=== PATIENT | male | born 1960 | race Caucasian/White ===

== ENCOUNTER → 2020-07-24 | Outpatient (CLI) | payer OTHER ==
--- NOTE | 2020-07-24 10:15 | US ---
EXAMINATION TYPE: US abdomen limited DATE OF EXAM: 07/24/2020 COMPARISON: NONE CLINICAL HISTORY: R10.9 abdominal pain. RUQ pain EXAM MEASUREMENTS: Liver Length: 8.7 cm Gallbladder Wall: 0.3 cm CBD: 0.6 cm Right Kidney: 11.7 x 5.2 x 5.7 cm Pancreas: prominent duct at 0.3 cm Liver: wnl Gallbladder: No stones seen Evidence for sonographic Perez's sign: No CBD: measures 0.6 cm Right Kidney: No hydronephrosis or masses seen IMPRESSION: Borderline prominence of the pancreatic duct. Otherwise unremarkable study.
== END | disposition home or self-care (01) ==
LOC: RADUSWWP 09:21
DX: R10.9 Unspecified abdominal pain (principal)
CPT/HCPCS: 76705

== ENCOUNTER 2020-09-16 13:56 | Inpatient (IN) | payer OTHER ==
[2020-09-16] MEDS ORDERED: ONDANSETRON 4 MG/2 ML VIAL IVP STA (14:33)
[2020-09-16] MEDS ORDERED: SODIUM CHLORIDE 0.9% 1,000 ML IV STA (14:33)
--- NOTE | 2020-09-16 14:51 | ED ---
General Adult HPI - General Source: patient Mode of arrival: wheelchair Limitations: no limitations <Adilene Yin - Last Filed: 09/16/20 19:09> <[place] Gautamah Nara - Last Filed: 09/18/20 12:08> - General Chief complaint: Chest Pain Stated complaint: Chest Pain,Dizziness,vomitng, sent from doctor Time Seen by Provider: 09/16/20 14:18 - History of Present Illness Initial comments: Patient is a 59-year-old male with history of hypertension, presenting to the emergency Department with complaints of acute onset of dizziness, nausea and diaphoresis. Patient is also complaining of his heart racing. Patient is ac tively vomiting in the ER. He is also complaining of a mild headache. He denies any chest pains, or shortness of breath. He denies any recent fevers or chills. She is currently being treated for a staph infection/skin cancer with antibiotics, he is unsure the name of the antibiotic. He denies any abdominal pain, no diarrhea. Patient states when he woke up this morning he felt his normal self, ate lunch and that's when his symptoms started. He has no further complaints at this time. Upon arrival to the ER, patient's blood pressure is elevated at 173/103 heart patient is actively vomiting. (Adilene Yin) - Related Data Home Medications Medication Instructions Recorded Confirmed Albuterol Inhaler [Ventolin Hfa 1 puff INHALATION RT-Q6H PRN 09/16/20 09/16/20 Inhaler] Doxycycline Hyclate [Vibramycin] 100 mg PO BID 09/16/20 09/16/20 amLODIPine [Norvasc] 5 mg PO DAILY 09/16/20 09/16/20 Previous Rx's Medication Instructions Recorded Amoxic-Pot Clav 875-125Mg 1 tab PO Q12HR 7 Days #14 tab 09/18/20 [Augmentin 875-125] Famotidine [Pepcid] 20 mg PO BID 7 Days #14 tablet 09/18/20 Allergies Allergy/AdvReac Type Severity Reaction Status Date / Time EVIN Inhibitors Allergy Anaphylaxis Verified 09/16/20 14:05 Review of Systems ROS Other: All systems not noted in ROS Statement are negative. <Adilene Yin - Last Filed: 09/16/20 19:09> ROS Other: All systems not noted in ROS Statement are negative. <Smitha Gautam - Last Filed: 09/18/20 12:08> ROS Statement: Those systems with pertinent positive or pertinent negative responses have been documented in the HPI. Past Medical History Past Medical History: Hypertension Additional Past Medical History / Comment(s): staph infection, skin CA. History of Any Multi-Drug Resistant Organisms: None Reported Past Surgical History: No Surgical Hx Reported Past Psychological History: No Psychological Hx Reported Smoking Status: Current every day smoker Past Alcohol Use History: None Reported Past Drug Use History: None Reported <Adilene Yin - Last Filed: 09/16/20 19:09> General Exam Limitations: no limitations <Adilene Yin - Last Filed: 09/16/20 19:09> - General Exam Comments Initial Comments: GENERAL: Patient is well-developed and well-nourished. Patient is nontoxic and in mild distress, actively vomiting. HEAD: Atraumatic, normocephalic. EYES: Pupils equal round and reactive to light, extraocular movements intact, sclera anicteric, conjunctiva are normal. Eyelids were unremarkable. ENT: TMs normal, nares patent, oropharynx clear without exudates. Moist mucous membranes. NECK: Normal range of motion, supple without lymphadenopathy or JVD. LUNGS: Unlabored respirations. Breath sounds clear to auscultation bilaterally and equal. No wheezes rales or rhonchi. HEART: Regular rate and rhythm without murmurs, rubs or gallops. ABDOMEN: Soft, nontender, normoactive bowel sounds. No guarding, no rebound. No masses appreciated. : Deferred MUSCULOSKELETAL: Normal extremities with adequate strength and normal range of motion, no pitting or edema. No clubbing or cyanosis. NEUROLOGICAL: Patient is alert and oriented x 3. Motor and sensory are also intact. Cranial nerves II through XII grossly intact. Symmetrical smile. Normal speech, normal gait. PSYCH: Normal mood, normal affect. SKIN: Warm, Dry, normal turgor, no rashes or lesions noted. (Adilene Yin) Course Vital Signs 09/16/20 09/16/20 09/16/20 14:00 15:16 18:33 Temperature Pulse Rate 76 68 68 Respiratory 18 18 18 Rate Blood Pressure 173/103 145/89 O2 Sat by Pulse 98 96 98 Oximetry 09/16/20 09/16/20 09/16/20 19:06 21:35 23:45 Temperature Pulse Rate 67 78 71 Respiratory 18 18 18 Rate Blood Pressure 149/75 144/82 167/90 O2 Sat by Pulse 94 L 94 L 94 L Oximetry 09/17/20 09/17/20 01:30 06:10 Temperature 97.6 F 98.3 F Pulse Rate 64 74 Respiratory 18 18 Rate Blood Pressure 134/76 130/83 O2 Sat by Pulse 95 94 L Oximetry EKG Findings - EKG Comments: EKG Findings:: Normal sinus rhythm, normal ECG, no signs of acute ischemia. Reviewed with Dr. Gautam. Ventricular rate 62, PA interval 144, QT of 404. <Adilene Yin - Last Filed: 09/16/20 19:09> Medical Decision Making - Lab Data Result diagrams: 09/16/20 15:14 09/16/20 15:14 <Adielne Yin - Last Filed: 09/16/20 19:09> - Lab Data Result diagrams: 09/16/20 15:14 09/16/20 15:14 <Smitha Gautam - Last Filed: 09/18/20 12:08> - Medical Decision Making Patient is a 59-year-old male here with an acute onset of nausea vomiting, heart palpitations, headache over the past 2 hours. EKG shows no signs of acute ischemia. Vitals are stable, troponin is negative, rapid Covid is not detected. Chest x-ray is revealing a left upper lobe mass, additional workup with a contrast CT is recommended. A CT shows an irregular mass within the left upper back, soft tissue. Small right lower lobe opacity, indeterminate 4 mm right upper lobe nodule. Upon speaking with the patient, patient does have history of recent skin cancer diagnosis with small mass on the left upper back. Patient continues to have intermittent palpitations/dyspnea, nauseous. Given his symptoms today, patient will be admitted for cardiac rule out. I will get franki pearson troponins, cardiac consult. Patient accepted by Dr. Khan. Case discussed with Dr. Gautam. (Adilene Yin) I was available for consultation in the emergency department. The history and physical exam were done by the midlevel provider. I was consulted for this patients care. I reviewed the case with the midlevel provider and based on their presentation of the patient, I agree with the assessment, medical decision making and plan of care as documented. Chart was dictated using [employer] dictation software. Attempts were made to correct any dictation errors however some typographical errors may persist. Patient was seen during a national state of emergency due to the Covid-19 pandemic. (Smitha Gautam) - Lab Data Lab Results 09/16/20 09/16/20 09/16/20 Range/Units 15:14 15:14 15:14 WBC 11.9 H (3.8-10.6) k/uL RBC 5.11 (4.30-5.90) m/uL Hgb 14.0 (13.0-17.5) gm/dL Hct 41.4 (39.0-53.0) % MCV 81.1 (80.0-100.0) fL MCH 27.5 (25.0-35.0) pg MCHC 33.9 (31.0-37.0) g/dL RDW 13.8 (11.5-15.5) % Plt Count 447 (150-450) k/uL MPV 8.1 Neutrophils % 63 % Lymphocytes % 26 % Monocytes % 6 % Eosinophils % 3 % Basophils % 1 % Neutrophils # 7.5 (1.3-7.7) k/uL Lymphocytes # 3.1 (1.0-4.8) k/uL Monocytes # 0.7 (0-1.0) k/uL Eosinophils # 0.4 (0-0.7) k/uL Basophils # 0.1 (0-0.2) k/uL PT 9.9 (9.0-12.0) sec INR 0.9 (<1.2) APTT 22.9 (22.0-30.0) sec Sodium 135 L (137-145) mmol/L Potassium 4.8 (3.5-5.1) mmol/L Chloride 102 (98-107) mmol/L Carbon Dioxide 24 (22-30) mmol/L Anion Gap 9 mmol/L BUN 17 (9-20) mg/dL Creatinine 0.76 (0.66-1.25) mg/dL Est GFR (CKD-EPI)AfAm >90 (>60 ml/min/1.73 sqM) Est GFR (CKD-EPI)NonAf >90 (>60 ml/min/1.73 sqM) Glucose 108 H (74-99) mg/dL Plasma Lactic Acid Chago (0.7-2.0) mmol/L Calcium 9.7 (8.4-10.2) mg/dL Magnesium 1.9 (1.6-2.3) mg/dL Total Bilirubin 0.4 (0.2-1.3) mg/dL AST 25 (17-59) U/L ALT 11 (4-49) U/L Alkaline Phosphatase 97 (38-126) U/L Troponin I (0.000-0.034) ng/mL Total Protein 7.1 (6.3-8.2) g/dL Albumin 4.1 (3.5-5.0) g/dL Triglycerides (0.0-149.0) mg/dL Cholesterol (0-200) mg/dL LDL Cholesterol, Calc (0.0-131.0) mg/dL VLDL Cholesterol, Calc (5.00-40.00) mg/dL HDL Cholesterol (40.0-60.0) mg/dL Cholesterol/HDL Ratio Amylase (30-110) U/L Lipase (23-300) U/L Urine Color Urine Appearance (Clear) Urine pH (5.0-8.0) Ur Specific [place] (1.001-1.035) Urine Protein (Negative) Urine Glucose (UA) (Negative) Urine Ketones (Negative) Urine Blood (Negative) Urine Nitrite (Negative) Urine Bilirubin (Negative) Urine Urobilinogen (<2.0) mg/dL Ur Leukocyte Esterase (Negative) Coronavirus (PCR) (Not Detectd) 09/16/20 09/16/20 09/16/20 Range/Units 15:14 15:14 15:14 WBC (3.8-10.6) k/uL RBC (4.30-5.90) m/uL Hgb (13.0-17.5) gm/dL Hct (39.0-53.0) % MCV (80.0-100.0) fL MCH (25.0-35.0) pg MCHC (31.0-37.0) g/dL RDW (11.5-15.5) % Plt Count (150-450) k/uL MPV Neutrophils % % Lymphocytes % % Monocytes % % Eosinophils % % Basophils % % Neutrophils # (1.3-7.7) k/uL Lymphocytes # (1.0-4.8) k/uL Monocytes # (0-1.0) k/uL Eosinophils # (0-0.7) k/uL Basophils # (0-0.2) k/uL PT (9.0-12.0) sec INR (<1.2) APTT (22.0-30.0) sec Sodium (137-145) mmol/L Potassium (3.5-5.1) mmol/L Chloride (98-107) mmol/L Carbon Dioxide (22-30) mmol/L Anion Gap mmol/L BUN (9-20) mg/dL Creatinine (0.66-1.25) mg/dL Est GFR (CKD-EPI)AfAm (>60 ml/min/1.73 sqM) Est GFR (CKD-EPI)NonAf (>60 ml/min/1.73 sqM) Glucose (74-99) mg/dL Plasma Lactic Acid Chago 1.8 (0.7-2.0) mmol/L Calcium (8.4-10.2) mg/dL Magnesium (1.6-2.3) mg/dL Total Bilirubin (0.2-1.3) mg/dL AST (17-59) U/L ALT (4-49) U/L Alkaline Phosphatase (38-126) U/L Troponin I <0.012 (0.000-0.034) ng/mL Total Protein (6.3-8.2) g/dL Albumin (3.5-5.0) g/dL Triglycerides 370.0 H (0.0-149.0) mg/dL Cholesterol 212 H (0-200) mg/dL LDL Cholesterol, Calc 106.0 (0.0-131.0) mg/dL VLDL Cholesterol, Calc 74.00 H (5.00-40.00) mg/dL HDL Cholesterol 32.0 L (40.0-60.0) mg/dL Cholesterol/HDL Ratio 6.63 Amylase (30-110) U/L Lipase (23-300) U/L Urine Color Urine Appearance (Clear) Urine pH (5.0-8.0) Ur Specific [place] (1.001-1.035) Urine Protein (Negative) Urine Glucose (UA) (Negative) Urine Ketones (Negative) Urine Blood (Negative) Urine Nitrite (Negative) Urine Bilirubin (Negative) Urine Urobilinogen (<2.0) mg/dL Ur Leukocyte Esterase (Negative) Coronavirus (PCR) (Not Detectd) 09/16/20 09/16/20 09/16/20 Range/Units 15:16 18:33 19:10 WBC (3.8-10.6) k/uL RBC (4.30-5.90) m/uL Hgb (13.0-17.5) gm/dL Hct (39.0-53.0) % MCV (80.0-100.0) fL MCH (25.0-35.0) pg MCHC (31.0-37.0) g/dL RDW (11.5-15.5) % Plt Count (150-450) k/uL MPV Neutrophils % % Lymphocytes % % Monocytes % % Eosinophils % % Basophils % % Neutrophils # (1.3-7.7) k/uL Lymphocytes # (1.0-4.8) k/uL Monocytes # (0-1.0) k/uL Eosinophils # (0-0.7) k/uL Basophils # (0-0.2) k/uL PT (9.0-12.0) sec INR (<1.2) APTT (22.0-30.0) sec Sodium (137-145) mmol/L Potassium (3.5-5.1) mmol/L Chloride (98-107) mmol/L Carbon Dioxide (22-30) mmol/L Anion Gap mmol/L BUN (9-20) mg/dL Creatinine (0.66-1.25) mg/dL Est GFR (CKD-EPI)AfAm (>60 ml/min/1.73 sqM) Est GFR (CKD-EPI)NonAf (>60 ml/min/1.73 sqM) Glucose (74-99) mg/dL Plasma Lactic Acid Chago (0.7-2.0) mmol/L Calcium (8.4-10.2) mg/dL Magnesium (1.6-2.3) mg/dL Total Bilirubin (0.2-1.3) mg/dL AST (17-59) U/L ALT (4-49) U/L Alkaline Phosphatase (38-126) U/L Troponin I <0.012 (0.000-0.034) ng/mL Total Protein (6.3-8.2) g/dL Albumin (3.5-5.0) g/dL Triglycerides (0.0-149.0) mg/dL Cholesterol (0-200) mg/dL LDL Cholesterol, Calc (0.0-131.0) mg/dL VLDL Cholesterol, Calc (5.00-40.00) mg/dL HDL Cholesterol (40.0-60.0) mg/dL Cholesterol/HDL Ratio Amylase (30-110) U/L Lipase (23-300) U/L Urine Color Yellow Urine Appearance Clear (Clear) Urine pH 6.5 (5.0-8.0) Ur Specific [place] 1.034 (1.001-1.035) Urine Protein Negative (Negative) Urine Glucose (UA) Negative (Negative) Urine Ketones Negative (Negative) Urine Blood Negative (Negative) Urine Nitrite Negative (Negative) Urine Bilirubin Negative (Negative) Urine Urobilinogen <2.0 (<2.0) mg/dL Ur Leukocyte Esterase Negative (Negative) Coronavirus (PCR) Not Detected (Not Detectd) 09/16/20 09/17/20 Range/Units 21:30 01:20 WBC (3.8-10.6) k/uL RBC (4.30-5.90) m/uL Hgb (13.0-17.5) gm/dL Hct (39.0-53.0) % MCV (80.0-100.0) fL MCH (25.0-35.0) pg MCHC (31.0-37.0) g/dL RDW (11.5-15.5) % Plt Count (150-450) k/uL MPV Neutrophils % % Lymphocytes % % Monocytes % % Eosinophils % % Basophils % % Neutrophils # (1.3-7.7) k/uL Lymphocytes # (1.0-4.8) k/uL Monocytes # (0-1.0) k/uL Eosinophils # (0-0.7) k/uL Basophils # (0-0.2) k/uL PT (9.0-12.0) sec INR (<1.2) APTT (22.0-30.0) sec Sodium (137-145) mmol/L Potassium (3.5-5.1) mmol/L Chloride (98-107) mmol/L Carbon Dioxide (22-30) mmol/L Anion Gap mmol/L BUN (9-20) mg/dL Creatinine (0.66-1.25) mg/dL Est GFR (CKD-EPI)AfAm (>60 ml/min/1.73 sqM) Est GFR (CKD-EPI)NonAf (>60 ml/min/1.73 sqM) Glucose (74-99) mg/dL Plasma Lactic Acid Chago (0.7-2.0) mmol/L Calcium (8.4-10.2) mg/dL Magnesium (1.6-2.3) mg/dL Total Bilirubin (0.2-1.3) mg/dL AST (17-59) U/L ALT (4-49) U/L Alkaline Phosphatase (38-126) U/L Troponin I <0.012 (0.000-0.034) ng/mL Total Protein (6.3-8.2) g/dL Albumin (3.5-5.0) g/dL Triglycerides (0.0-149.0) mg/dL Cholesterol (0-200) mg/dL LDL Cholesterol, Calc (0.0-131.0) mg/dL VLDL Cholesterol, Calc (5.00-40.00) mg/dL HDL Cholesterol (40.0-60.0) mg/dL Cholesterol/HDL Ratio Amylase 34 (30-110) U/L Lipase 23 (23-300) U/L Urine Color Urine Appearance (Clear) Urine pH (5.0-8.0) Ur Specific [place] (1.001-1.035) Urine Protein (Negative) Urine Glucose (UA) (Negative) Urine Ketones (Negative) Urine Blood (Negative) Urine Nitrite (Negative) Urine Bilirubin (Negative) Urine Urobilinogen (<2.0) mg/dL Ur Leukocyte Esterase (Negative) Coronavirus (PCR) (Not Detectd) Disposition Decision Date: 09/16/20 Decision Time: 18:35 <Adilene Yin - Last Filed: 09/16/20 19:09> <Smitha Gatuam - Last Filed: 09/18/20 12:08> Clinical Impression: Nausea & vomiting, Diaphoresis, Heart palpitations Disposition: ADMITTED IP TO THIS HOSP Condition: Stable
[2020-09-16 15:36] LABS: Basophils # (A) 0.1 k/uL (0-0.2); Basophils % (A) 1 %; Eosinophils # (A) 0.4 k/uL (0-0.7); Eosinophils % (A) 3 %; HCT 41.4 % (39.0-53.0); Lymphocytes # (A) 3.1 k/uL (1.0-4.8); Lymphocytes % (A) 26 %; MCH 27.5 pg (25.0-35.0); MCHC 33.9 g/dL (31.0-37.0); MCV 81.1 fL (80.0-100.0); Mean Platelet Volume 8.1; Monocytes # (A) 0.7 k/uL (0-1.0); Monocytes % (A) 6 %; Neutrophils # (A) 7.5 k/uL (1.3-7.7); Neutrophils % (A) 63 %; Platelet Count 447 k/uL (150-450); RBC 5.11 m/uL (4.30-5.90); RDW 13.8 % (11.5-15.5); WBC 11.9 k/uL (3.8-10.6)
[2020-09-16 15:39] LABS: ALT 11 U/L (4-49); AST 25 U/L (17-59); African American GFR (CKD) >90 (>60 ml/min/1.73 sqM); Albumin 4.1 g/dL (3.5-5.0); Alkaline Phosphatase 97 U/L (38-126); Anion Gap 9 mmol/L; Blood Urea Nitrogen 17 mg/dL (9-20); Calcium 9.7 mg/dL (8.4-10.2); Carbon Dioxide 24 mmol/L (22-30); Chloride 102 mmol/L (98-107); Glucose 108 mg/dL (74-99); Magnesium 1.9 mg/dL (1.6-2.3); Non-African American GFR(CKD) >90 (>60 ml/min/1.73 sqM); Potassium 4.8 mmol/L (3.5-5.1); Sodium 135 mmol/L (137-145); Total Bilirubin 0.4 mg/dL (0.2-1.3); Total Protein 7.1 g/dL (6.3-8.2)
[2020-09-16 15:41] LABS: INR 0.9 (<1.2); Partial Thromboplastin Time 22.9 sec (22.0-30.0); Prothrombin Time 9.9 sec (9.0-12.0)
--- NOTE | 2020-09-16 16:22 | XR ---
EXAMINATION TYPE: XR chest 2V DATE OF EXAM: 09/16/2020 COMPARISON: None INDICATION: Dyspnea chest pain and vomiting TECHNIQUE: Frontal and lateral views of the chest are obtained. FINDINGS: The heart size is normal. The pulmonary vasculature is normal. There is a 4.6 cm mass in the left upper lobe. Additional workup with contrast CT is recommended. Rem aining portions of the lungs appear clear.. IMPRESSION: 1. Left upper lobe mass. Additional workup with contrast CT is recommended.
[2020-09-16] MEDS ORDERED: RX INFO: IV CONTRAST WAS GIVEN 1 EACH MISC MISCELLANE PRN (16:58)
--- NOTE | 2020-09-16 17:58 | CT ---
EXAMINATION TYPE: CT chest w con DATE OF EXAM: 09/16/2020 COMPARISON: 70 radiograph. HISTORY: Left upper mass in chest. Follow-up dyspnea with abnormal chest x-ray. CT DLP: 390 mGycm Automated exposure control for dose reduction was used. TECHNIQUE: CT scan of the chest is performed with IV Contrast, patient injected with 100 mL of Isovue 370. MIP Images are created on CT scanner and reviewed. 3D reconstructed images are created on an independent workstation and reviewed. FINDINGS: LUNGS: There is moderate centrilobular emphysema. There is small platelike opacity in the right lower lobe. No significant consolidation, pleural effusion or pneumothorax seen. There is a 4 mm right upp er lobe nodule. The tracheobronchial tree is patent. MEDIASTINUM: There are no greater than 1 cm hilar or mediastinal lymph nodes. No pericardial effusi on is seen. Mild thoracic aorta and coronary atherosclerotic disease. Otherwise the great vessels an d heart are unremarkable. OTHER: There is a 3.8 x 1.3 cm irregular lesion with internal small calcification within the left up per back cutaneous soft tissues. No acute osseous abnormality. IMPRESSION: 3.8 cm irregular mass within the left upper back cutaneous soft tissues. This corresponds to the radi ographic abnormality. Recommend clinical correlation. Small right lower lobe opacity, correlate for atelectasis versus developing infiltrate. Indeterminate 4 mm right upper lobe nodule. Recommend follow-up in 6 months to one year.
[2020-09-16] MEDS ORDERED: ACETAMINOPHEN TAB 325 MG TAB PO PRN (18:31)
[2020-09-16] MEDS ORDERED: ONDANSETRON 4 MG/2 ML VIAL IVP PRN (18:33)
[2020-09-16 18:45] LABS: Appearance,Urine Clear (Clear); Bilirubin,Urine Negative (Negative); Blood,Urine Negative (Negative); Color,Urine Yellow; Glucose,Urine (UA) Negative (Negative); Ketones,Urine Negative (Negative); Leukocyte Esterase,Urine Negative (Negative); Nitrite,Urine Negative (Negative); PH, Urine 6.5 (5.0-8.0); Protein,Urine Negative (Negative); Specific Gravity,Urine 1.034 (1.001-1.035); Urobilinogen,Urine <2.0 mg/dL (<2.0)
[2020-09-17] MEDS ORDERED: ONDANSETRON 4 MG/2 ML VIAL IVP PRN (00:11)
[2020-09-17] MEDS: PANTOPRAZOLE 40 MG/10 ML VIAL IVP SCH ×3 (00:45→20:46)
--- NOTE | 2020-09-17 01:24 | CT ---
EXAM: CT Abdomen and Pelvis Without Intravenous Contrast CLINICAL HISTORY: ITS.REASON CT Reason: epigastric pain, vomiting TECHNIQUE: Axial computed tomography images of the abdomen and pelvis without intravenous contrast. CTDI is 8.77 mGy and DLP is 516.3 mGy-cm. This CT exam was performed using one or more of the following dose reduction techniques: automated exposure control, adjustment of the mA and/or kV according to patient size, and/or use of iterative reconstruction technique. COMPARISON: No relevant prior studies available. FINDINGS: Lung bases: Centrilobular emphysema. ABDOMEN: Liver: Unremarkable. Gallbladder and bile ducts: Contracted gallbladder. No biliary dilatation. No calcified stones. Pancreas: Unremarkable. No ductal dilation. Spleen: Unremarkable. No splenomegaly. Adrenals: Unremarkable. No mass. Kidneys and ureters: Kidneys are similar in size and contour. No hydronephrosis. Residual contrast in the renal collecting systems. Stomach and bowel: No small or large bowel obstruction. Distal colonic diverticulosis. Wall thickening and pericolic fat stranding in the mid sigmoid colon consistent with acute diverticulitis. PELVIS: Appendix: Normal appendix. Bladder: Residual contrast in the urinary bladder. No urinary bladder wall thickening. Reproductive: Prostate is normal in size. ABDOMEN and PELVIS: Intraperitoneal space: No free fluid, free air, or abscess. Bones/joints: Degenerative disc disease in the thoracolumbar spine. No acute fracture or dislocation. Soft tissues: Fat-containing inguinal hernias. Vasculature: Aortoiliac atherosclerosis without aneurysm. Lymph nodes: Unremarkable. No enlarged lymph nodes. IMPRESSION: Acute diverticulitis of the sigmoid colon. No free air or abscess.
[2020-09-17] MEDS ORDERED: HYDROmorphone 0.5 MG/0.5 ML SYRINGE IVP PRN (01:58)
[2020-09-17] MEDS: SODIUM CHLORIDE 0.9% 1,000 ML IV SCH ×3 (02:00→15:57)
[2020-09-17 02:31] LABS: Amylase 34 U/L (30-110); Lipase 23 U/L (23-300)
[2020-09-17] MEDS: PIPERACILLIN-TAZOBACTAM 3.375 GM in SODIUM CHLORIDE 0.9% 100 ML IVPB SCH ×3 (03:31→18:27)
[2020-09-17] MEDS ORDERED: ASPIRIN 325 MG TAB PO SCH (09:00)
[2020-09-17] MEDS: amLODIPine 5 MG TAB PO SCH (09:13)
[2020-09-17 10:05] LABS: Chol/HDL Ratio 6.63
--- NOTE | 2020-09-17 10:56 | P.CRDCN ---
History of Present Illness Consult date: 09/17/20 History of present illness: HISTORY OF PRESENT ILLNESS: This is a 59-year-old male with a past medical history significant for hypertension and nicotine dependence. 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 We have been asked to see the patient in consultation for chest pain and palpitations. Patient examined at the bedside in the emergency room. Patient states yesterday he was helping his grandkids make an ice cream cone when he suddenly began feeling lightheaded and dizzy. He felt like everything was spinning around him. He states he had to hold on to something so that he did not fall over. He reports feeling some palpitations. He denies ever having chest pain. He does report having some blurry vision. He reports having some nausea and vomiting on his way to the hospital. At the time of examination this morning, patient states he is feeling better. Patient does have a large mass to his left upper back. Patient states he has been trying to get this removed since May but has been waiting for [facility]. EKG reveals sinus mechanism with no signs of acute ischemia Chest xray left upper lobe mass. Chest CT: 3.8 cm irregular mass within the left upper back cutaneous soft tissues. 4 mm right upper lobe nodule. Laboratory data: WBC 11.9. Hemoglobin 14.0. Platelet count 447. Sodium 135. Potassium 4.8. BUN 17. Creatinine 0.76. Magnesium 1.9. Troponin negative 3. Current home cardiac medications include Norvasc 5 mg daily REVIEW OF SYSTEMS: At the time of my exam: CONSTITUTIONAL: Denies fever or chills. HEENT: Denies blurred vision, vision changes, or eye pain. Denies hemoptysis CARDIOVASCULAR: Denies chest pain. Denies orthopnea. Denies PND. Denies palpitations RESPIRATORY: Denies shortness of breath. GASTROINTESTINAL: Denies abdominal pain. Denies nausea or vomiting. HEMATOLOGIC: Denies bleeding disorders. GENITOURINARY: Denies any blood in urine. SKIN: Denies pruitis. Denies rash. PHYSICAL EXAM: VITAL SIGNS: Reviewed. GENERAL: Well-developed in no acute distress. HEENT: Head is normocephalic. Pupils are equal, round. Sclerae anicteric. Mucous membranes of the mouth are moist. Neck supple. No JVD or thyromegaly LUNGS: Respirations even and unlabored. Lungs essentially clear to auscultation bilaterally. HEART: Regular rate and rhythm. S1 and S2 heard. ABDOMEN: Soft. Nondistended. Nontender. EXTREMITIES: Normal range of motion. No clubbing or cyanosis. Peripheral pulses intact. No lower extremity edema NEUROLOGIC: Awake and alert. Oriented x 3. SKIN: Large mass noted to left upper back ASSESSMENT: Dizziness and lightheadedness Vertigo Chest pain, ruled out, patient denies have any chest pain yesterday or today Palpitations Hypertension Left upper back mass Pulmonary nodules Nicotine dependence PLAN: An acute coronary event has been ruled out Obtain 2D echo to assess cardiac structure and function Continue telemetry monitoring to assess for any arrhythmias Resume home dose of amlodipine. Monitor blood pressure Further recommendations pending patient course Nurse practitioner note has been reviewed by physician. Signing provider agrees with the documented findings, assessment, and plan of care. Past Medical History Past Medical History: Hypertension Additional Past Medical History / Comment(s): staph infection, skin CA. History of Any Multi-Drug Resistant Organisms: None Reported Past Surgical History: No Surgical Hx Reported Past Psychological History: No Psychological Hx Reported Smoking Status: Current every day smoker Past Alcohol Use History: None Reported Past Drug Use History: None Reported Medications and Allergies Home Medications Medication Instructions Recorded Confirmed Type Albuterol Inhaler [Ventolin Hfa 1 puff INHALATION RT-Q6H PRN 09/16/20 09/16/20 History Inhaler] Doxycycline Hyclate [Vibramycin] 100 mg PO BID 09/16/20 09/16/20 History amLODIPine [Norvasc] 5 mg PO DAILY 09/16/20 09/16/20 History Allergies Allergy/AdvReac Type Severity Reaction Status Date / Time EVIN Inhibitors Allergy Anaphylaxis Verified 09/16/20 14:05 Physical Exam Vitals: Vital Signs Temp Pulse Resp BP Pulse Ox 09/17/20 06:10 98.3 F 74 18 130/83 94 L 09/17/20 01:30 97.6 F 64 18 134/76 95 09/16/20 23:45 71 18 167/90 94 L 09/16/20 21:35 78 18 144/82 94 L 09/16/20 19:06 67 18 149/75 94 L 09/16/20 18:33 68 18 98 09/16/20 15:16 68 18 145/89 96 09/16/20 14:00 76 18 173/103 98 Results 09/16/20 15:14 09/16/20 15:14 Cardiac Enzymes 09/16/20 09/16/20 09/16/20 Range/Units 15:14 15:14 19:10 AST 25 (17-59) U/L Troponin I <0.012 <0.012 (0.000-0.034) ng/mL 09/16/20 Range/Units 21:30 AST (17-59) U/L Troponin I <0.012 (0.000-0.034) ng/mL Coagulation 09/16/20 Range/Units 15:14 PT 9.9 (9.0-12.0) sec APTT 22.9 (22.0-30.0) sec Lipids 09/16/20 Range/Units 15:14 Triglycerides 370.0 H (0.0-149.0) mg/dL Cholesterol 212 H (0-200) mg/dL HDL Cholesterol 32.0 L (40.0-60.0) mg/dL Cholesterol/HDL Ratio 6.63 CBC 09/16/20 Range/Units 15:14 WBC 11.9 H (3.8-10.6) k/uL RBC 5.11 (4.30-5.90) m/uL Hgb 14.0 (13.0-17.5) gm/dL Hct 41.4 (39.0-53.0) % Plt Count 447 (150-450) k/uL Comprehensive Metabolic Panel 09/16/20 Range/Units 15:14 Sodium 135 L (137-145) mmol/L Potassium 4.8 (3.5-5.1) mmol/L Chloride 102 (98-107) mmol/L Carbon Dioxide 24 (22-30) mmol/L BUN 17 (9-20) mg/dL Creatinine 0.76 (0.66-1.25) mg/dL Glucose 108 H (74-99) mg/dL Calcium 9.7 (8.4-10.2) mg/dL AST 25 (17-59) U/L ALT 11 (4-49) U/L Alkaline Phosphatase 97 (38-126) U/L Total Protein 7.1 (6.3-8.2) g/dL Albumin 4.1 (3.5-5.0) g/dL Current Medications Generic Name Dose Route Start Last Admin Trade Name Freq PRN Reason Stop Dose Admin Acetaminophen 650 mg 09/16/20 18:31 Acetaminophen Tab 325 Mg Tab PO Q4HR PRN Pain Amlodipine Besylate 5 mg 09/17/20 09:00 09/17/20 09:13 Amlodipine 5 Mg Tab PO 5 mg DAILY MARINA Administration Hydromorphone HCl 0.5 mg 09/17/20 01:58 Hydromorphone 0.5 Mg/0.5 Ml Syringe IVP Q3HR PRN Pain Piperacillin Sod/Tazobactam 100 mls @ 25 mls/hr 09/17/20 02:00 09/17/20 10:21 Sod 3.375 gm/ Sodium Chloride IVPB 25 mls/hr Q8H MARINA Administration Sodium Chloride 1,000 mls @ 75 mls/hr 09/17/20 02:00 09/17/20 02:00 Saline 0.9% IV 75 mls/hr .[id number] MARINA Administration Miscellaneous Information 1 each 09/16/20 16:58 Rx Info: Iv Contrast Was Given 1 Each Misc MISCELLANE 09/18/20 16:58 DAILY PRN Per Protocol Ondansetron HCl 4 mg 09/17/20 00:11 Ondansetron 4 Mg/2 Ml Vial IVP Q4H PRN Nausea And Vomiting Pantoprazole Sodium 40 mg 09/17/20 09:00 09/17/20 09:13 Pantoprazole 40 Mg/10 Ml Vial IVP 40 mg BID MARINA Administration 09/16/20 15:14 09/16/20 15:14
--- NOTE | 2020-09-17 11:19 | P.GSHP ---
History of Present Illness H&P Date: 09/17/20 CHIEF COMPLAINT: Diverticulitis HISTORY OF PRESENT ILLNESS: The patient is a 59 year old male who presents to the emergency room yesterday after having lower abdominal pain beyond 2 days. Diagnostic studies demonstrated acute diverticulitis. Patient reports no prior colonoscopy. Since admission, patient reports his abdominal pain is resolved. He does report nausea. He is not eating yet. Separately, primary care team is concerned of a large fungating mass along the right upper back. Patient denies any pain. He is in the [employer] system. Per discussion with primary team, patient is being worked up for malignant skin cancer of the back. PAST MEDICAL HISTORY: See list and reviewed PAST SURGICAL HISTORY: See list and reviewed MEDICATIONS: See list and reviewed ALLERGIES: See list and reviewed SOCIAL HISTORY: See list and reviewed FAMILY HISTORY: See list and reviewed REVIEW OF ORGAN SYSTEMS: CONSTITUTIONAL: No fevers or chills EYES: Denies any trouble with vision. No glasses. HEENT: No difficulties with hearing. No nosebleeds. RESPIRATORY: Current every day smoker. Has obstructive pulmonary disease. On inhalers. CARDIOVASCULAR: Denies any chest pain, palpitations, or recent heart attacks. Has hypertensive heart disease. GASTROINTESTINAL: Denies fatty food intolerance. Recent change in bowel habits. No prior colonoscopy. GENITOURINARY: Denies any blood in urine or increased urinary frequency. NEUROLOGICAL: Denies any numbness or tingling along the distal extremities. No seizure disorders or headaches. MUSCULOSKELETAL: Denies any back pain, stiffness or joint arthritis. SKIN: Skin cancer along face previously removed. PSYCHIATRIC: Denies current depression or suicidal thoughts. ENDOCRINE: Denies current thyroid disorders. Denies any blood sugar glucose intolerance. HEME/LYMPHATIC: Denies any lumps and bumps around the neck. No recent deep venous thrombosis. ALLERGY/IMMUNOLOGY: No immunoglobulin therapy. No immune deficiencies. BREAST: Denies current breast lumps, pain or nipple discharge. PHYSICAL EXAM: VITALS: Reviewed CONSTITUTIONAL: Well developed and in no acute distress. EYES: Conjuctivae without sclera icterus. Pupils are equally round and reactive to light. Extraocular movements grossly intact. HEAD, EARS, NOSE, THROAT: Moist buccal mucosa. Head is atraumatic, normocephalic. Hears conversational speech. No nasal drainage. NECK: Supple. No JV distention. No thyroidomegaly. RESPIRATORY: Non-labored respirations and equal bilateral excursions. No gross wheezes. CARDIOVASCULAR: Regular rate and rhythm. Palpable 2+ radial pulses. ABDOMEN: Soft. Nondistended. No peritonitis. MUSCULOSKELETAL: Nail and fingers with good capillary refill. SKIN: Warm and well perfused with good skin turgor. Large fungating mass of the left upper back over 6 x 5 cm with melanotic changes highly suspicious for fungating melanotic mass. NEUROLOGIC: Cranial nerves II through XII grossly intact. Sensation upper and extremities intact. No focal or lateralizing signs. PSYCH: Appropriate affect. Alert and oriented to person, place and time. Displays appropriate insight. CLINCAL LABS: Reviewed. WBC on admission over 11,000. Hemoglobin normal at 14.0. Triglycerides elevated over 370. Troponin is negative. IMAGING: CT of the abdomen and pelvis without IV contrast independently review demonstrating minimal inflammatory changes along the sigmoid colon which is redundant. Gallbladder present. Mild thickening along the distal esophagus. This is my independent interpretation. No free air or bowel obstruction identified. No metastatic lesions identified. RADIOLOGY: Report reviewed of the CT abdomen and pelvis confirms acute diverticulitis of the sigmoid colon. EKG: Demonstrates normal sinus rhythm ASSESSMENT: 1. Acute diverticulitis sigmoid colon 2. Neoplasm left pper back of uncertain malignant potential, highly suspicious for fungating melanotic mass PLAN: 1. Clinically, he reports his abdominal pain has improved. May start a liquid to a low fiber diet. 2. At least 6 weeks following acute event, colonoscopy is mercado patient reports no prior colonoscopy. 3. He has a highly malignant potential neoplasm of the left upper back of moderate size over 6 cm. Recommend referral to tertiary care center as management may include biopsy, resection, plastic surgery reconstruction, combined chemoradiation therapy. Thank you for this kind consultation. Past Medical History Past Medical History: Hypertension Additional Past Medical History / Comment(s): staph infection, skin CA. History of Any Multi-Drug Resistant Organisms: None Reported Past Surgical History: No Surgical Hx Reported Additional Past Surgical History / Comment(s): Skin cancer removed from face. Past Anesthesia/Blood Transfusion Reactions: No Reported Reaction Past Psychological History: No Psychological Hx Reported Smoking Status: Current every day smoker Past Alcohol Use History: None Reported Past Drug Use History: None Reported - Past Family History Father Family Medical History: Dementia Additional Family Medical History / Comment(s): Father of alzheimers. Mother Additional Family Medical History / Comment(s): Mother of a staph infection Medications and Allergies Home Medications Medication Instructions Recorded Confirmed Type Albuterol Inhaler [Ventolin Hfa 1 puff INHALATION RT-Q6H PRN 09/16/20 09/16/20 History Inhaler] Doxycycline Hyclate [Vibramycin] 100 mg PO BID 09/16/20 09/16/20 History amLODIPine [Norvasc] 5 mg PO DAILY 09/16/20 09/16/20 History Allergies Allergy/AdvReac Type Severity Reaction Status Date / Time EVIN Inhibitors Allergy Anaphylaxis Verified 09/16/20 14:05 Surgical - Exam Vital Signs Pulse Resp BP Pulse Ox 76 18 173/103 98 09/16/20 14:00 09/16/20 14:00 09/16/20 14:00 09/16/20 14:00 Results - Labs 09/16/20 15:14 09/16/20 15:14 Abnormal Lab Results - Last 24 Hours (Table) 09/16/20 09/16/20 09/16/20 Range/Units 15:14 15:14 15:14 WBC 11.9 H (3.8-10.6) k/uL Sodium 135 L (137-145) mmol/L Glucose 108 H (74-99) mg/dL Triglycerides 370.0 H (0.0-149.0) mg/dL Cholesterol 212 H (0-200) mg/dL VLDL Cholesterol, Calc 74.00 H (5.00-40.00) mg/dL HDL Cholesterol 32.0 L (40.0-60.0) mg/dL Diabetes panel 09/16/20 09/16/20 Range/Units 15:14 15:14 Sodium 135 L (137-145) mmol/L Potassium 4.8 (3.5-5.1) mmol/L Chloride 102 (98-107) mmol/L Carbon Dioxide 24 (22-30) mmol/L BUN 17 (9-20) mg/dL Creatinine 0.76 (0.66-1.25) mg/dL Glucose 108 H (74-99) mg/dL Calcium 9.7 (8.4-10.2) mg/dL AST 25 (17-59) U/L ALT 11 (4-49) U/L Alkaline Phosphatase 97 (38-126) U/L Total Protein 7.1 (6.3-8.2) g/dL Albumin 4.1 (3.5-5.0) g/dL Triglycerides 370.0 H (0.0-149.0) mg/dL HDL Cholesterol 32.0 L (40.0-60.0) mg/dL Calcium panel 09/16/20 Range/Units 15:14 Calcium 9.7 (8.4-10.2) mg/dL Albumin 4.1 (3.5-5.0) g/dL Pituitary panel 09/16/20 Range/Units 15:14 Sodium 135 L (137-145) mmol/L Potassium 4.8 (3.5-5.1) mmol/L Chloride 102 (98-107) mmol/L Carbon Dioxide 24 (22-30) mmol/L BUN 17 (9-20) mg/dL Creatinine 0.76 (0.66-1.25) mg/dL Glucose 108 H (74-99) mg/dL Calcium 9.7 (8.4-10.2) mg/dL Adrenal panel 09/16/20 Range/Units 15:14 Sodium 135 L (137-145) mmol/L Potassium 4.8 (3.5-5.1) mmol/L Chloride 102 (98-107) mmol/L Carbon Dioxide 24 (22-30) mmol/L BUN 17 (9-20) mg/dL Creatinine 0.76 (0.66-1.25) mg/dL Glucose 108 H (74-99) mg/dL Calcium 9.7 (8.4-10.2) mg/dL Total Bilirubin 0.4 (0.2-1.3) mg/dL AST 25 (17-59) U/L ALT 11 (4-49) U/L Alkaline Phosphatase 97 (38-126) U/L Total Protein 7.1 (6.3-8.2) g/dL Albumin 4.1 (3.5-5.0) g/dL Assessment and Plan (1) Sigmoid diverticulitis Current Visit: Yes Status: Acute Code(s): K57.32 - DVTRCLI OF LG INT W/O PERFORATION OR ABSCESS W/O BLEEDING SNOMED Code(s): 853092725 (2) Neoplasm of skin of upper back excluding scapular region Current Visit: Yes Status: Acute Code(s): D49.2 - NEOPLASM OF UNSP BEHAVIOR OF BONE, SOFT TISSUE, AND SKIN SNOMED Code(s): 179786401 (3) Asthma Current Visit: Yes Status: Acute Code(s): J45.909 - UNSPECIFIED ASTHMA, UNCOMPLICATED SNOMED Code(s): 165275763 (4) Hypertriglyceridemia Current Visit: Yes Status: Acute Code(s): E78.1 - PURE HYPERGLYCERIDEMIA SNOMED Code(s): 243496768
--- NOTE | 2020-09-17 12:45 | P.CNPUL ---
History of Present Illness Consult date: 09/17/20 Requesting physician: Adilene Yin Reason for consult: other Chief complaint: Pulmonary nodule History of present illness: 59-year-old white male patient, who follows with the [facility] for his primary care services, has a history of COPD, he is a chronic smoker, still smoking a pack a day for over 40 years. Other medical history is hypertension, and recent history of skin cancer on his back, which was biopsied in June 2020 at the [facility], patient was told that it's a low-grade malignancy skin cancer. The skin cancer lesion is on his mid upper back which was first noticed a year ago, however significantly increased in size over the last year, and since his biopsy in June, looks quite large, ulcerated, and open with purulent drainage in the center. On 09/16/2020 presented to the emergency department when he suddenly developed lightheadedness, dizziness, heart palpitations, he started throwing up. He was watching his grandson at home, and was not doing anything particularly exerting. Denies any worsening shortness of breath, he does have shortness of breath but not anymore than usual, no worsening cough, no chest pain. he still feels very dizzy, he is laying down flat in the ER on the gurney, and the sitting up makes him very dizzy. Denies hemoptysis, no fever or chills, no nausea or vomiting, no diarrhea. he was feeling well prior to that episode. he tested negative for COVID 19, chest x- ray in the emergency department showed left upper lobe mass, and this was followed up with a CT of the chest with contrast showing 3.8 cm irregular mass within the left upper back cutaneous soft tissue is pending with the left upper lobe mass on the chest x-ray which is actually external on his back. There was a small platelike opacity in the right lower lobe, no significant consolidation, pleural effusion or pneumothorax, and there was a 4 mm right upper lobe nodule. CT of the abdomen and pelvis acute diverticulitis of the sigmoid colon, no free air or abscess. Admission lab work has been reviewed, no significant leukocytosis, white blood cell, is 11.9, hemoglobin is 14, elects and renal profile are unremarkable, lactic acid is 1.8, bun is our less than 0.0123, LFTs are within normal limits, urinalysis was negative. EKG showed normal sinus rhythm. Room air pulse ox is 94%, patient was hypertensive on arrival with a blood pressure 173/103. Apparently patient was being treated with antibiotics for staph infection on an outpatient basis. Was given IV fluids, wound cultures were obtained from his left upper back ulcerated mass with purulent drainage, patient is currently on Zosyn. cardiology evaluation was requested. Gen. surgery consultation requested. And pulmonary consult was placed in regards to 4 mm right upper lobe pulmonary nodule Review of Systems All systems: negative Constitutional: Reports weakness, Denies chills, Denies fever Eyes: denies blurred vision, denies pain Ears, nose, mouth and throat: Denies headache, Denies sore throat Cardiovascular: Reports palpitations, Denies chest pain, Denies shortness of breath Respiratory: Denies cough Gastrointestinal: Denies abdominal pain, Denies diarrhea, Denies nausea, Denies vomiting Musculoskeletal: Denies myalgias Integumentary: Denies pruritus, Denies rash Neurological: Reports vertigo, Denies numbness, Denies weakness Psychiatric: Denies anxiety, Denies depression Endocrine: Denies fatigue, Denies weight change Past Medical History Past Medical History: Hypertension Additional Past Medical History / Comment(s): staph infection, skin CA. History of Any Multi-Drug Resistant Organisms: None Reported Past Surgical History: No Surgical Hx Reported Additional Past Surgical History / Comment(s): Skin cancer removed from face. Past Anesthesia/Blood Transfusion Reactions: No Reported Reaction Past Psychological History: No Psychological Hx Reported Smoking Status: Current every day smoker Past Alcohol Use History: None Reported Past Drug Use History: None Reported - Past Family History Father Family Medical History: Dementia Additional Family Medical History / Comment(s): Father of alzheimers. Mother Additional Family Medical History / Comment(s): Mother of a staph infection Medications and Allergies Home Medications Medication Instructions Recorded Confirmed Type Albuterol Inhaler [Ventolin Hfa 1 puff INHALATION RT-Q6H PRN 09/16/20 09/16/20 History Inhaler] Doxycycline Hyclate [Vibramycin] 100 mg PO BID 09/16/20 09/16/20 History amLODIPine [Norvasc] 5 mg PO DAILY 09/16/20 09/16/20 History Allergies Allergy/AdvReac Type Severity Reaction Status Date / Time EVIN Inhibitors Allergy Anaphylaxis Verified 09/16/20 14:05 Physical Exam Vitals: Vital Signs Temp Pulse Resp BP Pulse Ox 09/17/20 06:10 98.3 F 74 18 130/83 94 L 09/17/20 01:30 97.6 F 64 18 134/76 95 09/16/20 23:45 71 18 167/90 94 L 09/16/20 21:35 78 18 144/82 94 L 09/16/20 19:06 67 18 149/75 94 L 09/16/20 18:33 68 18 98 09/16/20 15:16 68 18 145/89 96 09/16/20 14:00 76 18 173/103 98 Intake and Output 09/16/20 09/17/20 09/17/20 22:59 06:59 14:59 Other: Weight 77.111 kg GENERAL EXAM: Alert, very pleasant, 59-year-old white male, on room air, with a pulse ox of 94%, comfortable in no apparent distress. HEAD: Normocephalic/atraumatic. EYES: Normal reaction of pupils, equal size. Conjunctiva pink, sclera white. NOSE: Clear with pink turbinates. THROAT: No erythema or exudates. NECK: No masses, no JVD, no thyroid enlargement, no adenopathy. CHEST: No chest wall deformity. Symmetrical expansion. LUNGS: Equal air entry with no crackles, wheeze, rhonchi or dullness. CVS: Regular rate and rhythm, normal S1 and S2, no gallops, no murmurs, no rubs ABDOMEN: Soft, nontender. No hepatosplenomegaly, normal bowel sounds, no guarding or rigidity. EXTREMITIES: No clubbing, no edema, no cyanosis, 2+ pulses and upper and lower extremities. MUSCULOSKELETAL: Muscle strength and tone normal. SPINE: No scoliosis or deformity SKIN: Large ulcerated mass on the upper back, with the open center and purulent drainage CENTRAL NERVOUS SYSTEM: Alert and oriented -3. No focal deficits, tone is normal in all 4 extremities. PSYCHIATRIC: Alert and oriented -3. Appropriate affect. Intact judgment and insight. Results - Laboratory Findings CBC and BMP: 09/16/20 15:14 09/16/20 15:14 PT/INR, D-dimer PT 9.9 sec (9.0-12.0) 09/16/20 15:14 INR 0.9 (<1.2) 09/16/20 15:14 Abnormal lab findings: Abnormal Labs 09/16/20 09/16/20 09/16/20 15:14 15:14 15:14 WBC 11.9 H Sodium 135 L Glucose 108 H Triglycerides 370.0 H Cholesterol 212 H VLDL Cholesterol, Calc 74.00 H HDL Cholesterol 32.0 L - Diagnostic Findings Chest x-ray: report reviewed, image reviewed CT scan - chest: report reviewed, image reviewed Assessment and Plan Plan: Assessment: #1. 4 mm right upper lobe pulmonary nodule, be followed on outpatient basis #2. Upper back also skin mass, related to skin cancer with a recent history of skin biopsy in June 2020, exact results are unknown, but patient was told it was low-grade malignancy skin cancer. #3. Purulent drainage infection of the right upper back mass #4. Acute diverticulitis without perforation #5. Dizziness, lightheadedness, palpitations unknown etiology #6. History of COPD, not on oxygen on a regular basis #7. Hypertension #8. Chronic and ongoing history of smoking, and cares [id number] smoking history Plan: From pulmonary perspective patient is stable, and will need outpatient follow-up in 3 months with a follow-up CT scan of the chest with contrast. She is currently being considered for transfer to a tertiary care facility for evaluation of the skin mass, that likely will need surgical intervention. His COPD is stable. We'll continue current antibiotics, wound cultures have been sent pending at this time, vital signs are stable at this time, continue to follow I performed a history & physical examination of the patient and discussed their management with my nurse practitioner, Billie Sevilla. I reviewed the nurse practitioner's note and agree with the documented findings and plan of care. Lung sounds are positive for diminished breath sounds. The findings and the impression was discussed with the patient. I attest to the documentation by the nurse practitioner. Time with Patient: Greater than 30
--- NOTE | 2020-09-17 15:08 | P.HPIM ---
History of Present Illness 59-year-old male came in with complaints of a nausea vomiting and abdominal pain off which resolved at this time patient is found to have diverticulitis in the sigmoid area. Patient was also having diaphoresis because of which I believe cardiology was consulted although patient denied any chest pain. Patient was evaluated by cardiology no further intervention is being recommended at this time the ordered echocardiogram. Patient's abdominal pain significant improved. Multiple consultants were consulted from ER. Patient has a mass in the back which the past for the patient is a low-grade malignancy. Patient is supposed to follow dermatology for the removal of this mass patient is also on doxycycline for possible infection and wound surrounding the mass. Patient was a valid by oncology here. Patient had a chest x-ray in the ER which showed left upper lobe lesion, pulmonary nodule which will be followed as an outpatient patient has a 4 mm right upper lobe pulmonary nodule. Neurology evaluated the patient here. Patient was evaluated by general surgery as well Review of Systems REVIEW OF SYSTEMS: CONSTITUTIONAL: No fever, no malaise, no fatigue. HEENT: No recent visual problems or hearing problems. Denied any sore throat. CARDIOVASCULAR: No chest pain, orthopnea, PND, no palpitations, no syncope. PULMONARY: No shortness of breath, no cough, no hemoptysis. GASTROINTESTINAL: As mentioned in HPI NEUROLOGICAL: No headaches, no weakness, no numbness. HEMATOLOGICAL: Denies any bleeding or petechiae. GENITOURINARY: Denies any burning micturition, frequency, or urgency. MUSCULOSKELETAL/RHEUMATOLOGICAL: Denies any joint pain, swelling, or any muscle pain. ENDOCRINE: Denies any polyuria or polydipsia. The rest of the 14-point review of systems is negative. Past Medical History Past Medical History: Hypertension Additional Past Medical History / Comment(s): staph infection, skin CA. History of Any Multi-Drug Resistant Organisms: None Reported Past Surgical History: No Surgical Hx Reported Additional Past Surgical History / Comment(s): Skin cancer removed from face. Past Anesthesia/Blood Transfusion Reactions: No Reported Reaction Past Psychological History: No Psychological Hx Reported Smoking Status: Current every day smoker Past Alcohol Use History: None Reported Past Drug Use History: None Reported - Past Family History Father Family Medical History: Dementia Additional Family Medical History / Comment(s): Father of alzheimers. Mother Additional Family Medical History / Comment(s): Mother of a staph infection Medications and Allergies Home Medications Medication Instructions Recorded Confirmed Type Albuterol Inhaler [Ventolin Hfa 1 puff INHALATION RT-Q6H PRN 09/16/20 09/16/20 History Inhaler] Doxycycline Hyclate [Vibramycin] 100 mg PO BID 09/16/20 09/16/20 History amLODIPine [Norvasc] 5 mg PO DAILY 09/16/20 09/16/20 History Amoxicillin/Potassium Clav 1 tab PO Q12HR 1 Days #14 tab 09/17/20 Rx [Augmentin 875-125 Tablet] Famotidine [Pepcid] 20 mg PO BID #14 tablet 09/17/20 Rx Allergies Allergy/AdvReac Type Severity Reaction Status Date / Time EVIN Inhibitors Allergy Anaphylaxis Verified 09/16/20 14:05 Physical Exam Vitals: Vital Signs Temp Pulse Resp BP Pulse Ox 09/17/20 12:47 18 09/17/20 06:10 98.3 F 74 18 130/83 94 L 09/17/20 01:30 97.6 F 64 18 134/76 95 09/16/20 23:45 71 18 167/90 94 L 09/16/20 21:35 78 18 144/82 94 L 09/16/20 19:06 67 18 149/75 94 L 09/16/20 18:33 68 18 98 09/16/20 15:16 68 18 145/89 96 Intake and Output 09/16/20 09/17/20 09/17/20 22:59 06:59 14:59 Other: Voiding Method Urinal Weight 77.111 kg PHYSICAL EXAMINATION: GENERAL: The patient is alert and oriented x3, not in any acute distress. Well developed, well nourished. HEENT: Pupils are round and equally reacting to light. EOMI. No scleral icterus. No conjunctival pallor. Normocephalic, atraumatic. No pharyngeal erythema. No thyromegaly. CARDIOVASCULAR: S1 and S2 present. No murmurs, rubs, or gallops. PULMONARY: Chest is clear to auscultation, no wheezing or crackles. ABDOMEN: Soft, nontender, nondistended, normoactive bowel sounds. No palpable organomegaly. MUSCULOSKELETAL: No joint swelling or deformity. EXTREMITIES: No cyanosis, clubbing, or pedal edema. NEUROLOGICAL: Gross neurological examination did not reveal any focal deficits. SKIN: Patient has abdomen: She a 6 cm fungating mass projecting outside in the upper back. There may be surrounding cellulitis. Results CBC & Chem 7: 09/16/20 15:14 09/16/20 15:14 Labs: Abnormal Lab Results - Last 24 Hours (Table) 09/16/20 09/16/20 09/16/20 Range/Units 15:14 15:14 15:14 WBC 11.9 H (3.8-10.6) k/uL Sodium 135 L (137-145) mmol/L Glucose 108 H (74-99) mg/dL Triglycerides 370.0 H (0.0-149.0) mg/dL Cholesterol 212 H (0-200) mg/dL VLDL Cholesterol, Calc 74.00 H (5.00-40.00) mg/dL HDL Cholesterol 32.0 L (40.0-60.0) mg/dL Microbiology - Last 24 Hours (Table) 09/17/20 01:12 Wound Culture - Preliminary Back Thrombosis Risk Factor Assmnt - Choose All That Apply Any of the Below Risk Factors Present?: Yes Each Factor Represents 1 point: Abnormal pulmonary function (COPD), Age 41-60 years Other Risk Factors: Yes Each Risk Factor Represents 2 Points: Malignancy Other congenital or acquired thrombophilia - If yes, enter type in comment: No Thrombosis Risk Factor Assessment Total Risk Factor Score: 4 Thrombosis Risk Factor Assessment Level: Moderate Risk Assessment and Plan Plan: -Acute sigmoid diverticulitis: Patient will be discharged on Augmentin for 7 more days symptoms improved patient will be started on diet. -Fungating lesion on the back: Patient is already on doxycycline patient will be discharged on Augmentin anyways for diverticulitis, this should cover most of the the skin bacteria as well as anaerobes. Patient may have mild infection at the site of this lesion. Patient already has an outpatient follow-up for the removal of this mass. 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 -Pulmonary nodule in the right upper lobe of the lung: Follow with pulmonary as an outpatient with a repeat CT in about 3 months -Rule out a concurrent syndromes patient doesn't have any chest pain at this time History of COPD Patient will be discharged today on Augmentin
--- NOTE | 2020-09-17 15:08 | P.DS ---
Providers Date of admission: 09/17/20 10:03 Attending physician: Jatinder Khan Consults: 09/16/20 18:31 Consult Physician Urgent Consulting Provider: [facility] Consult Reason/Comments: chest pain, palpitations Do you want consulting provider notified?: Yes 09/17/20 00:11 Consult Physician Routine Consulting Provider: Jeronimo Vizcarra Consult Reason/Comments: lung mass per CT Do you want consulting provider notified?: Yes 09/17/20 00:16 Consult Physician Routine Consulting Provider: Tito Vicente Consult Reason/Comments: cancerous mass on back Do you want consulting provider notified?: Yes, Notify in am 09/17/20 01:56 Consult Physician Urgent Consulting Provider: Bety Orellana Consult Reason/Comments: abd pain/diverticulitis Do you want consulting provider notified?: Yes, Notify in am Primary care physician: [facility] Hospital Course: Please refer to my HPI for further details Patient Condition at Discharge: Stable Plan - Discharge Summary Discharge Rx Participant: No New Discharge Prescriptions: New Amoxicillin/Potassium Clav [Augmentin 875-125 Tablet] 1 tab PO Q12HR 1 Days #14 tab Famotidine [Pepcid] 20 mg PO BID #14 tablet Continue Albuterol Inhaler [Ventolin Hfa Inhaler] 1 puff INHALATION RT-Q6H PRN PRN Reason: Shortness Of Breath Doxycycline Hyclate [Vibramycin] 100 mg PO BID amLODIPine [Norvasc] 5 mg PO DAILY Discharge Medication List Albuterol Inhaler [Ventolin Hfa Inhaler] 1 puff INHALATION RT-Q6H PRN 09/16/20 [History] Doxycycline Hyclate [Vibramycin] 100 mg PO BID 09/16/20 [History] amLODIPine [Norvasc] 5 mg PO DAILY 09/16/20 [History] Amoxicillin/Potassium Clav [Augmentin 875-125 Tablet] 1 tab PO Q12HR 1 Days #14 tab 09/17/20 [Rx] Famotidine [Pepcid] 20 mg PO BID #14 tablet 09/17/20 [Rx] Follow up Appointment(s)/Referral(s): Jeronimo Vizcarra DO [Doctor of Osteopathic Medicine] - [facility] Days Discharge Disposition: HOME SELF-CARE
--- NOTE | 2020-09-17 16:09 | P.CONS ---
History of Present Illness - Reason for Consult Consult date: 09/17/20 Skin malignancy Requesting physician: Jatinder Khan - Chief Complaint Chest pains, dizziness, diaphoresis - History of Present Illness Mr. Li is a very pleasant 59-year-old male patient we've been asked to see in regards to a left back lesion. This is been there for quite some time, family had examined few weeks ago due to the increasing size. Surgery is already set up. Patient is admitted with complaints of chest pain, dizziness, diaphoresis, nausea, palpitations. He has been on treatment for staph infection. Review of Systems 14 point review of systems is negative except stated in HPI Past Medical History Past Medical History: Cancer (Skin, source not defined), Hypertension Additional Past Medical History / Comment(s): staph infection, skin CA. History of Any Multi-Drug Resistant Organisms: None Reported Past Surgical History: No Surgical Hx Reported Additional Past Surgical History / Comment(s): Skin cancer removed from face. Past Anesthesia/Blood Transfusion Reactions: No Reported Reaction Past Psychological History: No Psychological Hx Reported Smoking Status: Current every day smoker Past Alcohol Use History: None Reported Past Drug Use History: None Reported - Past Family History Father Family Medical History: Dementia Additional Family Medical History / Comment(s): Father of alzheimers. Mother Additional Family Medical History / Comment(s): Mother of a staph infection Medications and Allergies Home Medications Medication Instructions Recorded Confirmed Type Albuterol Inhaler [Ventolin Hfa 1 puff INHALATION RT-Q6H PRN 09/16/20 09/16/20 History Inhaler] Doxycycline Hyclate [Vibramycin] 100 mg PO BID 09/16/20 09/16/20 History amLODIPine [Norvasc] 5 mg PO DAILY 09/16/20 09/16/20 History Amoxicillin/Potassium Clav 1 tab PO Q12HR 1 Days #14 tab 09/17/20 Rx [Augmentin 875-125 Tablet] Famotidine [Pepcid] 20 mg PO BID #14 tablet 09/17/20 Rx Allergies Allergy/AdvReac Type Severity Reaction Status Date / Time EVIN Inhibitors Allergy Anaphylaxis Verified 09/16/20 14:05 Physical Exam Vitals: Vital Signs Temp Pulse Pulse Resp BP Pulse Ox 09/17/20 15:00 98.1 F 74 16 95 09/17/20 14:00 16 09/17/20 12:47 18 09/17/20 06:10 98.3 F 74 18 130/83 94 L 09/17/20 01:30 97.6 F 64 18 134/76 95 09/16/20 23:45 71 18 167/90 94 L 09/16/20 21:35 78 18 144/82 94 L 09/16/20 19:06 67 18 149/75 94 L 09/16/20 18:33 68 18 98 Intake and Output 09/17/20 09/17/20 09/17/20 06:59 14:59 22:59 Intake Total 250 Balance 250 Intake: IV 150 Sodium Chloride 0.9% 1, 150 000 ml @ 75 mls/hr IV . [id number] [facility] Rx#:[id number] Intake, IV Titration 100 Amount Piperacillin-Tazobactam 3 100 .375 gm In Sodium Chloride 0.9% 100 ml @ 25 mls/hr IVPB Q8H [facility] Rx#: [id number] Other: Voiding Method Toilet Urinal Weight 77.111 kg - Constitutional General appearance: average body habitus, cooperative, no acute distress - EENT Eyes: anicteric sclerae, EOMI ENT: hearing grossly normal, normal oropharynx - Neck Neck: no lymphadenopathy - Respiratory Respiratory: bilateral: CTA - Cardiovascular Rhythm: regular Heart sounds: normal: S1, S2 Abnormal Heart Sounds: no systolic murmur, no diastolic murmur, no rub, no S3 Gallop, no S4 Gallop, no click, no other leg Peripheral Edema: bilateral: None - Gastrointestinal General gastrointestinal: no absent bowel sounds, no decreased bowel sounds, no distended, no hepatomegaly, no hyperactive bowel sounds, normal bowel sounds, no organomegaly, no rigid, no scaphoid, soft, no splenomegaly, no tenderness, no umbilical hernia, no ventral hernia - Integumentary 4-5 cm lesion, central necrosis, elevated, cauliflower look on the left upper back - Neurologic Neurologic: CNII-XII intact - Musculoskeletal Musculoskeletal: strength equal bilaterally - Psychiatric Psychiatric: A&O x's 3, appropriate affect, intact judgment & insight Results CBC & Chem 7: 09/16/20 15:14 09/16/20 15:14 Labs: Abnormal Lab Results - Last 24 Hours (Table) 09/16/20 Range/Units 15:14 Triglycerides 370.0 H (0.0-149.0) mg/dL Cholesterol 212 H (0-200) mg/dL VLDL Cholesterol, Calc 74.00 H (5.00-40.00) mg/dL HDL Cholesterol 32.0 L (40.0-60.0) mg/dL Microbiology - Last 24 Hours (Table) 09/17/20 01:12 Wound Culture - Preliminary Back CT scan - abdomen: report reviewed CT scan - chest: report reviewed CT scan - pelvis: report reviewed Assessment and Plan (1) Neoplasm of skin of upper back excluding scapular region Narrative/Plan: Patient is not sure if this is basal cell versus squamous cell. 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 Patient states he is already set up for surgical removal. Patient will continue to follow with Dermatology. Patient will be referred to Oncology as appropriate based on the pathology. Current Visit: Yes Status: Acute Priority: High Code(s): D49.2 - NEOPLASM OF UNSP BEHAVIOR OF BONE, SOFT TISSUE, AND SKIN SNOMED Code(s): 637657285 Plan: Case was discussed with Internal Medicine. Patient's symptoms were improved shortly after admission. Recommendation was for MRI of the brain based on patient's presenting symptoms. With rather rapid improvement with supportive care this can be done in the outpatient setting. If symptoms return, recommendation would be for MRI of the brain with contrast to rule out the possibility of any metastatic lesions. Doctor attests: I performed a history and physical examination of this patient, developed impression and plan of care. Discussed with dictator. I agree with dictators note, documented as a scribe.
--- NOTE | 2020-09-17 18:32 | XR ---
RESULT: HISTORY: for MRI clearance TECHNIQUE: 3 views of the orbits for MRI clearance were obtained. COMPARISON: None. FINDINGS: No evidence of radiopaque foreign body within the orbits. No acute osseous abnormality. The visualize d paranasal sinuses are adequately aerated. IMPRESSION: No evidence of radiopaque foreign body within the orbits.
[2020-09-18] MEDS: PIPERACILLIN-TAZOBACTAM 3.375 GM in SODIUM CHLORIDE 0.9% 100 ML IVPB SCH (02:20)
[2020-09-18] MEDS: SODIUM CHLORIDE 0.9% 1,000 ML IV SCH (02:21)
[2020-09-18] MEDS: amLODIPine 5 MG TAB PO SCH (08:19)
[2020-09-18] MEDS: PANTOPRAZOLE 40 MG/10 ML VIAL IVP SCH (08:20)
[2020-09-18 09:09] VITALS: BP 151/85; PULSE 67; RESP 14; TEMP 97.8
--- NOTE | 2020-09-18 09:19 | MR ---
EXAMINATION TYPE: MR brain wo/w con DATE OF EXAM: 09/18/2020 COMPARISON: None HISTORY: nausea, dizzy, active skin cancer CONTRAST: Performed utilizing 7.5 mL intravenous Gadavist gadolinium contrast. TECHNIQUE: Multiplanar, multiecho imaging on a 3.0 Gretel magnet is performed through the brain. Stud y is performed within 24 hours of arrival to the hospital. The craniovertebral junction is normal. The pituitary is normal. Diffusion-weighted imaging is performed. No abnormal hyperintensity is present to suggest an acute i ntracranial infarct or acute ischemic change. There are scattered punctate areas of hyperintensity on T2 and Inversion Recovery weighted sequences in the subcortical white matter greater in the parietal-occipital regions in the left canela radiata. These are non-specific but can be related to microvascular ischemic changes. And post contrast T1-weighted images there is a curvilinear hypointensity with some central increased signal in the right cerebellum. Series 601 image 7. This is not identified on additional pulse seque nces including postcontrast coronal T1-weighted images. This may be an artifact and follow-up exam in 3 months can be performed. Ventricles and sulci are appropriate for the patient age. There is a retention cyst within the left maxillary sinus. IMPRESSIONS: 1. Suspicious changes to suggest metastatic disease are not identified. 2. Chronic appearing deep white matter ischemic changes. 3. Suspect artifact on the T1 axial images. Consider follow-up MRI with contrast in 3 months, earlier exam can be performed for changing clinical symptoms.
--- NOTE | 2020-09-18 09:38 | P.PN ---
Subjective Progress Note Date: 09/18/20 CHIEF COMPLAINT: Diverticulitis HISTORY OF PRESENT ILLNESS: The patient is a 59 year old male who present with acute diverticulitis. His abdominal pain has resolved. He is tolerating liquid diet. Separately, patient has malignant lesion of the left upper back where he is being referred for a tertiary care center. No complaints. REVIEW OF ORGAN SYSTEMS: no shortness of breath. No fevers or chills. PHYSICAL EXAM: VITALS: Reviewed CONSTITUTIONAL: Well developed and in no acute distress. EYES: Conjuctivae without sclera icterus. Pupils are equally round and reactive to light. Extraocular movements grossly intact. HEAD, EARS, NOSE, THROAT: Moist buccal mucosa. Head is atraumatic, normo cephalic. Hears conversational speech. No nasal drainage. RESPIRATORY: Non-labored respirations and equal bilateral excursions. No gross wheezes. CARDIOVASCULAR: Regular rate and rhythm. Palpable 2+ radial pulses. ABDOMEN: Soft. Nondistended. No peritonitis. MUSCULOSKELETAL: Nail and fingers with good capillary refill. SKIN: Large fungating mass of the left upper back over 6 x 5 cm. NEUROLOGIC: Cranial nerves II through XII grossly intact. Sensation upper and extremities intact. No focal or lateralizing signs. PSYCH: Appropriate affect. Alert and oriented to person, place and time. Displays appropriate insight. CLINCAL LABS: Reviewed. Amylase lipase within normal limits. ASSESSMENT: 1. Acute diverticulitis sigmoid colon 2. Neoplasm left pper back of uncertain malignant potential PLAN: Recommend low fiber diet. 1. He is tolerating diet. Stable for discharge from a surgical standpoint. 2. Recommend colonoscopy in 6 weeks after acute event. 3. Patient reports he is scheduled to undergo evaluation and resection of his malignant tumor of his back at a tertiary care center Objective - Vital Signs Vital signs: Vital Signs Temp 97.8 F 09/18/20 07:06 Pulse 67 09/18/20 07:06 Resp 14 09/18/20 07:06 BP 151/85 09/18/20 07:06 Pulse Ox 95 09/18/20 07:06 Intake & Output 09/17/20 09/18/20 09/18/20 18:59 06:59 18:59 Intake Total 250 Balance 250 Weight 77.111 kg Intake: IV 150 Sodium Chloride 0.9% 1, 150 000 ml @ 75 mls/hr IV . [id number] [facility] Rx#:[id number] Intake, IV Titration 100 Amount Piperacillin-Tazobactam 3 100 .375 gm In Sodium Chloride 0.9% 100 ml @ 25 mls/hr IVPB Q8H [facility]S [facility]CLUDE 234 BEDS AT [facility] Rx#: [id number] Other: Voiding Method Toilet Toilet Toilet Urinal Urinal Urinal # Voids 1 - Labs CBC & Chem 7: 09/16/20 15:14 09/16/20 15:14 Labs: Abnormal Lab Results - Last 24 Hours (Table) 09/16/20 Range/Units 15:14 Triglycerides 370.0 H (0.0-149.0) mg/dL Cholesterol 212 H (0-200) mg/dL VLDL Cholesterol, Calc 74.00 H (5.00-40.00) mg/dL HDL Cholesterol 32.0 L (40.0-60.0) mg/dL Microbiology - Last 24 Hours (Table) 09/17/20 01:20 Blood Culture - Preliminary Blood No Growth after 24 hours 09/17/20 01:12 Blood Culture - Preliminary Blood No Growth after 24 hours 09/17/20 01:12 Gram Stain - Preliminary Back Wound Culture - Preliminary Assessment and Plan (1) Sigmoid diverticulitis Current Visit: Yes Status: Acute Code(s): K57.32 - DVTRCLI OF LG INT W/O PERFORATION OR ABSCESS W/O BLEEDING SNOMED Code(s): 151033432 (2) Neoplasm of skin of upper back excluding scapular region Current Visit: Yes Status: Acute Priority: High Code(s): D49.2 - NEOPLASM OF UNSP BEHAVIOR OF BONE, SOFT TISSUE, AND SKIN SNOMED Code(s): 121122597 (3) Asthma Current Visit: Yes Status: Acute Code(s): J45.909 - UNSPECIFIED ASTHMA, UNCOMPLICATED SNOMED Code(s): 009548490 (4) Hypertriglyceridemia Current Visit: Yes Status: Acute Code(s): E78.1 - PURE HYPERGLYCERIDEMIA SNOMED Code(s): 487037333
--- NOTE | 2020-09-18 09:54 | ECHOF ---
Referral Reason: MEASUREMENTS -------- HEIGHT: 172.7 cm WEIGHT: 77.1 kg BP: 130/83 IVSd: 1.2 cm (0.6 - 1.1) LVIDd: 4.0 cm (3.9 - 5.3) LVPWd: 1.3 cm (0.6 - 1.1) IVSs: 2.1 cm LVIDs: 1.8 cm LVPWs: 1.6 cm LAESV Index (A-L): 22.96 ml/m Ao Diam: 3.2 cm (2.0 - 3.7) AV Cusp: 2.0 cm (1.5 - 2.6) LA Diam: 3.0 cm (2.7 - 3.8) MV EXCURSION: 18.395 mm (> 18.000) MV EF SLOPE: 150 mm/s (70 - 150) MV E Mark: 1.02 m/s MV DecT: 263 ms MV A Mark: 1.05 m/s MV E/A Ratio: 0.97 RAP: 5.00 mmHg RVSP: 38.59 mmHg FINDINGS -------- This was a technically good study. The left ventricular size is normal. There is mild concentric left ventricular hypertrophy. Overa ll left ventricular systolic function is normal with, an EF between 55 - 60 %. The diastolic fillin g pattern is normal for the age of the patient 8.77. The right ventricle is normal in size. The left atrial size is normal. Normal LA size by volume 22+/-6 ml/m2. The right atrial size is normal. The aortic valve is trileaflet and appears structurally normal. The mitral valve is normal. The mitral valve leaflets are mildly thickened. Mild mitral regurgita tion is present. The tricuspid valve appears structurally normal. Mild tricuspid regurgitation present. Right vent ricular systolic pressure is normal at < 35 mmHg. There is no pulmonic regurgitation present. The aortic root size is normal. IVC Not well visulized. There is no pericardial effusion. CONCLUSIONS -------- 1. The left ventricular size is normal. 2. There is mild concentric left ventricular hypertrophy. 3. Overall left ventricular systolic function is normal with, an EF between 55 - 60 %. 4. The diastolic filling pattern is normal for the age of the patient 8.77 5. The mitral valve leaflets are mildly thickened. 6. Mild mitral regurgitation is present. 7. Mild tricuspid regurgitation present. 8. There is no pericardial effusion. ASSISTANT PROFESSOR OF ECONOMICS: Yareli Smith RDCS
--- NOTE | 2020-09-18 11:48 | P.DS ---
Providers Date of admission: 09/17/20 10:03 Expected date of discharge: 09/18/20 Attending physician: Jatinder Khan Consults: 09/17/20 00:11 Consult Physician Routine Consulting Provider: Jeronimo Vizcarra Consult Reason/Comments: lung mass per CT Do you want consulting provider notified?: Yes 09/17/20 00:16 Consult Physician Routine Consulting Provider: Tito Vicente Consult Reason/Comments: cancerous mass on back Do you want consulting provider notified?: Yes, Notify in am 09/17/20 01:56 Consult Physician Urgent Consulting Provider: Bety Orellana Consult Reason/Comments: abd pain/diverticulitis Do you want consulting provider notified?: Yes, Notify in am Primary care physician: [facility] Hospital Course: Final diagnosis -Acute sigmoid diverticulitis -Fungating lesion on the back, has outpatient follow-up appointment with dermatology for removal this week -Pulmonary nodule in the right upper lobe of the lung: Follow with pulmonary as an outpatient with a repeat CT in about 3 months -Ruled out acute coronary syndrome -History of COPD Discharge disposition Patient is being discharged in a stable condition with guarded prognosis to home. Patient will follow-up with [facility] along with Dr. Vizcarra in the outpatient setting upon discharge. Patient has outpatient appointment scheduled with dermatology for fungating lesion on the back and will continue with oral antibiotics in the form of Augmentin twice daily for the next 1 week. Patient will also need to follow-up with pulmonary outpatient with repeat testing. Patient to follow with Dr. Vicente oncology in the outpatient setting as well. Total time taken is greater than 35 minutes. Hospital course 59-year-old male came in with complaints of a nausea vomiting and abdominal pain off which resolved at this time patient is found to have diverticulitis in the sigmoid area. Patient was also having diaphoresis because of which I believe cardiology was consulted although patient denied any chest pain. Patient was evaluated by cardiology no further intervention is being recommended at this time the ordered echocardiogram. Patient's abdominal pain significant improved. Multiple consultants were consulted from ER. Patient has a mass in the back which the past for the patient is a low-grade malignancy. Patient is supposed to follow dermatology for the removal of this mass patient is also on doxycycline for possible infection and wound surrounding the mass. Patient was a valid by oncology here. Patient had a chest x-ray in the ER which showed left upper lobe lesion, pulmonary nodule which will be followed as an outpatient patient has a 4 mm right upper lobe pulmonary nodule. Neurology evaluated the patient here. Patient was evaluated by general surgery as well 09/18/2020 Patient was observed overnight to monitor for diet tolerance and is tolerating with no further abdominal discomfort. Patient was seen and evaluated by surgery and has been cleared. Patient has an appointment scheduled with dermatology for removal of the lesion on his back and will follow-up with oncology in the outpatient setting. Patient also instructed to follow-up with pulmonary for further testing. Patient will continue on oral Augmentin twice daily for the next 1 week. Currently no reports of chest pain, shortness of breath, or palpitations. Patient is afebrile. No reports of nausea or vomiting and patient is tolerating diet. Patient will be discharged home today. On exam vital signs are stable. Cardio S1, S2 are muffled. Respiratory system shows diminished breath sounds at the bases with no wheezing or rhonchi noted. Abdomen is soft and nontender. Nervous system shows no focal deficits. Please refer to medication reconciliation sheet for a list of medications. Patient Condition at Discharge: Stable Plan - Discharge Summary Discharge Rx Participant: Yes New Discharge Prescriptions: New Amoxic-Pot Clav 875-125Mg [Augmentin 875-125] 1 tab PO Q12HR 7 Days #14 tab Famotidine [Pepcid] 20 mg PO BID 7 Days #14 tablet Continue Albuterol Inhaler [Ventolin Hfa Inhaler] 1 puff INHALATION RT-Q6H PRN PRN Reason: Shortness Of Breath Doxycycline Hyclate [Vibramycin] 100 mg PO BID amLODIPine [Norvasc] 5 mg PO DAILY Discharge Medication List Albuterol Inhaler [Ventolin Hfa Inhaler] 1 puff INHALATION RT-Q6H PRN 09/16/20 [History] Doxycycline Hyclate [Vibramycin] 100 mg PO BID 09/16/20 [History] amLODIPine [Norvasc] 5 mg PO DAILY 09/16/20 [History] Amoxic-Pot Clav 875-125Mg [Augmentin 875-125] 1 tab PO Q12HR 7 Days #14 tab 09/18/20 [Rx] Famotidine [Pepcid] 20 mg PO BID 7 Days #14 tablet 09/18/20 [Rx] Follow up Appointment(s)/Referral(s): Tito Vicente MD [STAFF PHYSICIAN] - 1 Week (The office will call you with your appointmnt.) Jeronimo Vizcarra DO [Doctor of Osteopathic Medicine] - 10/23/20 9:30 am [facility] [Primary Care Provider] - 09/28/20 2:00 pm Patient Instructions/Handouts: Amoxicillin/Clavulanate Potassium (By mouth), Chest Pain (DC), Heart Palpitations (DC) Discharge Disposition: HOME SELF-CARE
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
== END 2020-09-18 13:10 | disposition home or self-care (01) | DRG 392 ==
LOC: EC 13:56 → 6NMEDSUR 18:46 → MERGE 09-17 10:03 → OBSVTOIN 09-17 10:03 → 6NMEDSUR 09-17 11:36
PROVIDERS: ADMIT Hospitalist; ATTEND Hospitalist
DX: K57.32 Diverticulitis of large intestine without perforation or abscess without bleeding (principal); C44.509 Unspecified malignant neoplasm of skin of other part of trunk; B95.8 Unspecified staphylococcus as the cause of diseases classified elsewhere; E78.1 Pure hyperglyceridemia; J44.9 Chronic obstructive pulmonary disease, unspecified; I10 Essential (primary) hypertension; Z20.822 Contact with and (suspected) exposure to COVID-19; I08.1 Rheumatic disorders of both mitral and tricuspid valves; R91.1 Solitary pulmonary nodule; F17.210 Nicotine dependence, cigarettes, uncomplicated; Z71.6 Tobacco abuse counseling; Z79.899 Other long term (current) drug therapy; Z85.828 Personal history of other malignant neoplasm of skin; Z98.890 Other specified postprocedural states; Z88.8 Allergy status to other drugs, medicaments and biological substances; Z81.8 Family history of other mental and behavioral disorders
CPT/HCPCS: 36415; 70030; 70553; 71046; 71260; 74176; 80053; 80061; 81003; 82150; 83605; 83690; 83735; 84484; 85025; 85610; 85730; 87040; 87070; 87077; 87186; 87205; 87635; 93005; 93306; 96361; 96374; 99285

== ENCOUNTER 2020-10-30 07:13 | Day surgery (SDC) | payer OTHER ==
[2020-10-27 13:52] VITALS: BMI 26.4
[~2020-10-30 07:13] MED LIST: ACETAMINOPHEN TAB 500 MG TAB PO PRN; DEXAMETHASONE SOD PHOSPHATE 4 MG/ML 1 ML VIAL IV ONE; HEPARIN SODIUM,PORCINE/PF 5,000 UNIT/0.5 ML SYRINGE SQ PRN; HYDROmorphone 0.5 MG/0.5 ML SYRINGE IVP PRN; LACTATED RINGERS 1,000 ML IV SCH; MIDAZOLAM 2 MG/2 ML VIAL IV PRN; ONDANSETRON 4 MG/2 ML VIAL IVP ONE; Pre Op ABX Message 1 EACH MISC MISCELLANE ONE; SCOPOLAMINE 1.5MG/72HR PATCH TRANSDERM ONE
[2020-10-30] MEDS ORDERED: LIDOCAINE 1% (10MG/ML) FOR IV START INTRADERMA ONE (07:42)
--- NOTE | 2020-10-30 08:38 | P.GSHP ---
History of Present Illness H&P Date: 10/30/20 Chief Complaint: Basal cell skin cancer back This is a 59-year-old male who presents today for wide local excision of basal cell carcinoma back. Patient has a 15 cm fungating ulcerated skin lesion on his mid back. Past Medical History Past Medical History: Cancer, COPD, Hypertension Additional Past Medical History / Comment(s): Has a staph infection on his back, skin CA. History of Any Multi-Drug Resistant Organisms: None Reported Past Surgical History: Tonsillectomy Additional Past Surgical History / Comment(s): Skin cancer removed from face. Past Anesthesia/Blood Transfusion Reactions: No Reported Reaction Smoking Status: Current every day smoker - Past Family History Father Family Medical History: Dementia Additional Family Medical History / Comment(s): Father of Alzheimers. Mother Additional Family Medical History / Comment(s): Mother of a staph infection Medications and Allergies Home Medications Medication Instructions Recorded Confirmed Type Albuterol Inhaler [Ventolin Hfa 1 puff INHALATION RT-Q6H PRN 09/16/20 10/30/20 History Inhaler] amLODIPine [Norvasc] 5 mg PO DAILY 09/16/20 10/30/20 History Fluticasone Propionate [Flonase 1 spray EA NOSTRIL DAILY 10/27/20 10/27/20 History Allergy Relief] Allergies Allergy/AdvReac Type Severity Reaction Status Date / Time EVIN Inhibitors Allergy Anaphylaxis Verified 10/30/20 07:30 Surgical - Exam Vital Signs Temp Pulse Resp BP Pulse Ox 98.3 F 80 16 148/73 96 10/30/20 07:34 10/30/20 07:34 10/30/20 07:34 10/30/20 07:34 10/30/20 07:34 - General well developed, well nourished, no distress - Eyes PERRL - ENT normal pinna - Neck no masses - Respiratory normal expansion - Cardiovascular Rhythm: regular - Abdomen Abdomen: soft, non tender - Integumentary 15 x 16 cm ulcerated fungating skin lesion with necrosis Assessment and Plan Assessment: Basal cell carcinoma back. Patient be scheduled for wide local excision. She will aware that the wound would not be able to be closed and will require local wound care.
[2020-10-30] MEDS ORDERED: SUCCINYLCHOLINE CHLORIDE 100 MG/5 ML SYR IV ONE (08:43)
[2020-10-30] MEDS ORDERED: fentaNYL (PF) 50 MCG/ML 2 ML AMP ONE (08:43)
[2020-10-30] MEDS ORDERED: LIDOCAINE 1% INJ 10MG/ML (20 ML MDV) ONE (08:43)
[2020-10-30] MEDS ORDERED: PROPOFOL 10 MG/ML 20 ML VIAL IV ONE (08:43)
[2020-10-30] MEDS ORDERED: MIDAZOLAM 2 MG/2 ML VIAL ONE (08:43)
[2020-10-30] MEDS ORDERED: SODIUM CHLORIDE 0.9% 100 ML with ceFAZolin 2,000 MG IV ONE ×2 (09:11)
[2020-10-30] MEDS ORDERED: BUPIVACAIN-EPI 0.5%-1:200,000 30 ML VIAL SQ ONE (09:11)
[2020-10-30 09:46] VITALS: TEMP 96.9
[2020-10-30 10:55] VITALS: BP 131/79; PULSE 75; RESP 18
--- NOTE | 2020-10-30 11:18 | P.OP ---
Date of Procedure: 10/30/20 Preoperative Diagnosis: Large basal cell carcinoma back Postoperative Diagnosis: Large basal cell carcinoma back Procedure(s) Performed: Wide local excision basal cell carcinoma back Anesthesia: DOREEN Surgeon: Mike Cage Estimated Blood Loss (ml): 25 Pathology: other (Basal cell carcinoma back) Condition: stable Disposition: PACU Description of Procedure: Patient's placed on the operative table in the prone position after receiving general endotracheal tube anesthesia. His back was prepped and draped usual fashion. Patient a very large basal cell carcinoma measuring approximately 20 x 20 cm the mass was fungating and necrotic. The area was prepped and sterile fashion. Using left cautery and cut mode the skin was incised around the lesion. The lesion had a stitched orientated cephalad. Using cautery the subcu tissue divided. The dissection was taken down level of the muscle fascia. He was this was achieved with cautery. The wound was then packed with wet-to-dry Kerlix. Patient top she will was sent to recovery room stable condition.
--- NOTE | 2020-10-30 11:34 | P.CONS ---
History of Present Illness - Reason for Consult Consult date: 10/30/20 Wound care - History of Present Illness This is a 59-year-old patient being seen in phase II for a ulceration to the mid back related to a wide incisional excision of basal cell carcinoma to the back. Patient has a large pressure dressing in place at this time. The basal cell carcinoma measures approximate 20 x 20 x3 cm mass that was incubating and necrotic. The wound was packed with wet-to-dry Kerlix. We will continue with wet-to-dry dressings until wound VAC is available. Asians past medical history significant for skin cancer, COPD, hypertension. Denies diabetes. He isn't every day smoker. Review Of Systems: Constitutional: No fever, no chills, no night sweats. No weight change. No weakness, fatigue or lethargy. No daytime sleepiness. Integumentary:reports wounds, no lesions. No rash or pruritus. No unusual bruising. No change in hair or nails. Physical exam: General Appearance: Alert, cooperative, no distress, appears stated age. Skin: See HPI all other Skin color, texture, tugor normal, no rashes or lesions. Neurologic: Alert oriented x3 Assessment: 1. Nonhealing ulceration with muscle exposure without necrosis 2. Basal cell carcinoma 3. Nicotine dependence Plan: 1. Apply wet to dry dressing daily with home care. We've pressure dressing on until home care is available. Apply a negative pressure wound VAC at 1 millimeters of mercury continuous. Utilizing black foam. Change wound VAC 3 times a week. Patient will be seen in the wound care center on [phone] at [phone]. Thank you for the consultation any questions please contact the wound care center DNP note has been reviewed and discussed with Dr. Grant and the impression and plan of care has been directed as dictated. Past Medical History Past Medical History: Cancer, COPD, Hypertension Additional Past Medical History / Comment(s): Has a staph infection on his back, skin CA. History of Any Multi-Drug Resistant Organisms: None Reported Past Surgical History: Tonsillectomy Additional Past Surgical History / Comment(s): Skin cancer removed from face. Past Anesthesia/Blood Transfusion Reactions: No Reported Reaction Smoking Status: Current every day smoker - Past Family History Father Family Medical History: Dementia Additional Family Medical History / Comment(s): Father of Alzheimers. Mother Additional Family Medical History / Comment(s): Mother of a staph infection Medications and Allergies Home Medications Medication Instructions Recorded Confirmed Type Albuterol Inhaler [Ventolin Hfa 1 puff INHALATION RT-Q6H PRN 09/16/20 10/30/20 History Inhaler] amLODIPine [Norvasc] 5 mg PO DAILY 09/16/20 10/30/20 History Fluticasone Propionate [Flonase 1 spray EA NOSTRIL DAILY 10/27/20 10/27/20 History Allergy Relief] Allergies Allergy/AdvReac Type Severity Reaction Status Date / Time EVIN Inhibitors Allergy Anaphylaxis Verified 10/30/20 07:30 Physical Exam Vitals: Vital Signs Temp Pulse Pulse Resp BP BP Pulse Ox 10/30/20 10:53 75 18 131/79 93 L 10/30/20 10:38 72 16 137/80 97 10/30/20 10:23 70 16 133/76 97 10/30/20 10:08 81 18 129/73 100 10/30/20 09:53 68 16 127/71 98 10/30/20 09:38 96.9 F L 64 16 126/68 98 10/30/20 07:34 98.3 F 80 16 148/73 96 Intake and Output 10/29/20 10/30/20 10/30/20 22:59 06:59 14:59 Intake Total 1000 Output Total 50 Balance 950 Intake: IV 1000 Output: Estimated Blood Loss 50 Other: Weight 80.4 kg Assessment and Plan (1) Non-pressure chronic ulcer of back with muscle involvement without evidence of necrosis Current Visit: Yes Status: Acute Code(s): L98.425 - NON-PRS CHR ULCER OF BACK WITH MUSCLE INVL W/O EVD OF NECR SNOMED Code(s): 797721751 (2) Neoplasm of skin of upper back excluding scapular region Current Visit: No Status: Acute Priority: High Code(s): D49.2 - NEOPLASM OF UNSP BEHAVIOR OF BONE, SOFT TISSUE, AND SKIN SNOMED Code(s): 359330497
== END 2020-10-30 12:21 | disposition home or self-care (01) ==
LOC: OR 07:13
PROVIDERS: ATTEND Surgery
DX: C44.529 Squamous cell carcinoma of skin of other part of trunk (principal); C44.509 Unspecified malignant neoplasm of skin of other part of trunk; I10 Essential (primary) hypertension; J44.9 Chronic obstructive pulmonary disease, unspecified; Z90.89 Acquired absence of other organs; F17.200 Nicotine dependence, unspecified, uncomplicated; Z81.8 Family history of other mental and behavioral disorders; Z83.1 Family history of other infectious and parasitic diseases; Z84.89 Family history of other specified conditions; Z79.899 Other long term (current) drug therapy; Z88.8 Allergy status to other drugs, medicaments and biological substances
CPT/HCPCS: 11606; 88305; 88342; 88341; J2250; J1100; J2405; J0690; J2001; J3010; J0330; J2704; J1644

== ENCOUNTER → 2021-02-18 | Outpatient (CLI) | payer OTHER ==
--- NOTE | 2021-02-19 07:42 | CT ---
EXAMINATION TYPE: CT chest w con DATE OF EXAM: 02/18/2021 COMPARISON: Chest CT September 16, 2020 HISTORY: Lung nodule. Prior abnormal CT. CT DLP: 365 mGycm. Automated Exposure Control for Dose Reduction was Utilized. TECHNIQUE: CT scan of the thorax is performed following with IV Contrast, patient injected with 100m l mL of Isovue 300. FINDINGS: LUNGS: Moderate underlying emphysematous change is redemonstrated greatest in the upper lungs. Stable 5 x 3 mm right upper lobe nodule axial image 19. Mild bibasilar linear scarring redemonstrated. Tiny fat-containing diaphragmatic hernia left posterior level axial image 54 redemonstrated. No new or en larging greater than 5 mm nodules. No pleural effusion or pneumothorax seen bilaterally MEDIASTINUM: There are no new greater than 1 cm hilar or mediastinal lymph nodes. No cardiomegaly o r pericardial effusion is seen. Coronary artery calcification redemonstrated which is noted marker f or underlying coronary artery disease. OTHER: Slight scoliotic curvature with mild multilevel spurring. Interval removal of dermal-based les ion posterior left upper thoracic level there are axial image 20 where there is loss of subcutaneous fat. IMPRESSION: Stable 5 x 3 mm right upper lobe nodule. No new or enlarging nodules or masses.
== END | disposition home or self-care (01) ==
LOC: RADCTMAIN 16:00
PROVIDERS: ATTEND Internal Medicine Critical Care Medicine
DX: R91.1 Solitary pulmonary nodule (principal)
CPT/HCPCS: 71260; Q9967

== ENCOUNTER → 2022-04-06 | Outpatient (CLI) | payer OTHER ==
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
== END | disposition home or self-care (01) ==
LOC: RADCTMAIN 09:27
DX: R91.8 Other nonspecific abnormal finding of lung field (principal); R59.0 Localized enlarged lymph nodes
CPT/HCPCS: 71250

== ENCOUNTER → 2022-05-20 | Outpatient (CLI) | payer OTHER ==
--- NOTE | 2022-05-20 12:51 | US ---
EXAMINATION TYPE: US axilla LT DATE OF EXAM: 05/20/2022 COMPARISON: Prior chest CT April 06, 2022 and older CTs CLINICAL HISTORY: N63.32 UNSPECIFIED LUMP IN AXILLARY TAIL OF THE LE. left axilla lump. Multiple lymph nodes visualized largest measuring 2.2 x 1.7 x 1.5 cm. IMPRESSION: Persistent abnormal left axillary adenopathy which correlates with most recent CT, neopl astic etiology must be considered along with postinflammatory and/or postinfectious etiologies. Corre late clinically. Imaging guided sampling can be performed if desired. Further workup and follow-up ad vised.
== END | disposition home or self-care (01) ==
LOC: RADUSWWP 12:11
PROVIDERS: ATTEND Family Medicine
DX: N63.32 Unspecified lump in axillary tail of the left breast (principal)

== ENCOUNTER 2022-06-03 08:10 | Day surgery (SDC) | payer OTHER ==
[~2022-06-03 08:10] MED LIST changes: +LIDOCAINE 1% (10MG/ML) FOR IV START INTRADERMA PRN; -SCOPOLAMINE 1.5MG/72HR PATCH TRANSDERM ONE
[2022-06-03] MEDS ORDERED: FAMOTIDINE 20 MG/2 ML VIAL IVP ONE (09:10)
[2022-06-03] MEDS ORDERED: HYDROmorphone (PF) 1 MG/ML ONE (10:14)
[2022-06-03] MEDS ORDERED: SUCCINYLCHOLINE CHLORIDE 200 MG/10 ML VIAL IV ONE (10:14)
[2022-06-03] MEDS ORDERED: MIDAZOLAM 2 MG/2 ML VIAL ONE (10:14)
[2022-06-03] MEDS ORDERED: fentaNYL (PF) 50 MCG/ML 2 ML AMP ONE (10:14)
[2022-06-03] MEDS ORDERED: PROPOFOL 10 MG/ML 20 ML VIAL IV ONE (10:14)
[2022-06-03] MEDS ORDERED: LIDOCAINE 2% INJ 20 MG/ML (2 ML VIAL) ONE (10:14)
[2022-06-03] MEDS ORDERED: BUPIVACAIN-EPI 0.25%-1:200,000 30 ML VIAL SQ ONE ×2 (10:15→10:52)
[2022-06-03] MEDS ORDERED: SODIUM CHLORIDE 0.9% 100 ML with ceFAZolin 2,000 MG IV ONE ×2 (10:35)
--- NOTE | 2022-06-03 11:01 | P.OP ---
Date of Procedure: 06/03/22 Preoperative Diagnosis: Left axillary lymphadenopathy Postoperative Diagnosis: Same Procedure(s) Performed: Left axillary lymph node biopsy Anesthesia: DOREEN Surgeon: Mike Cage Estimated Blood Loss (ml): 5 Pathology: other (Left axillary lymph nodes) Condition: stable Disposition: PACU Description of Procedure: The patient's placed on the operative table in supine position. He received general endotracheal tube anesthesia. His left is all was prepped and draped usual sterile fashion. A skin incision was made left is all then using left cautery the subcutaneous tissue divided. The left axillary lymph nodes palpated. The clavicle pectoral fascia was opened. And then the axilla was grasped with Allis clamp. Using the Harmonic scissors the lymph node biopsy performed with specimens of pathology. A BELKIS drain was placed in the axilla and brought through separate stab incision. The subcutaneous were closed with 0 Vicryl suture. Skin was closed interrupted 3-0 Monocryl suture. Dermabond was applied. Patient top she will was sent to recovery in stable condition.
[2022-06-03] MEDS ORDERED: NALOXONE 0.4 MG/ML 1 ML VIAL IVP ONE ×2 (11:12→12:06)
[2022-06-03 11:36] VITALS: TEMP 97
[2022-06-03 11:41] LABS: Glucose,Whole Blood 124 mg/dL (70-110)
[2022-06-03] MEDS ORDERED: ONDANSETRON 4 MG/2 ML VIAL IVP ONE (12:11)
[2022-06-03] MEDS ORDERED: METOCLOPRAMIDE 5 MG/ML 2 ML VIAL IVP ONE (12:53)
[2022-06-03] MEDS ORDERED: SCOPOLAMINE 1 MG/72 HR PATCH TRANSDERM ONE (13:19)
[2022-06-03 14:24] VITALS: BP 148/79; PULSE 78; RESP 17
== END 2022-06-03 14:45 | disposition home or self-care (01) ==
LOC: OR 08:10
PROVIDERS: ATTEND Surgery
DX: R59.1 Generalized enlarged lymph nodes (principal); I10 Essential (primary) hypertension
CPT/HCPCS: 38500; J2250; J0330; J1100; J2310; J2765; J2405; J0690; J3010; J1170; J2704; J1790; J1644; J2001

== ENCOUNTER 2022-06-13 10:58 | Emergency (ER) | payer OTHER ==
[2022-06-13 11:21] VITALS: BP 184/92; PULSE 74; RESP 20; TEMP 98.4
--- NOTE | 2022-06-13 12:05 | ED ---
General Adult HPI - General Source: patient, RN notes reviewed Mode of arrival: ambulatory Limitations: no limitations <Skyler Dias - Last Filed: 06/13/22 12:04> <Richard Cardona - Last Filed: 06/13/22 13:11> - General Chief complaint: Recheck/Abnormal Lab/Rx Stated complaint: post op Time Seen by Provider: 06/13/22 12:04 - History of Present Illness Initial comments: 61-year-old male presents emergency Department chief complaint of draining falling out of his left axilla. Patient had a lymph node removed by Dr. phillips on the . Patient states that he did follow-up recommended to have it removed this Monday states they want to start today and it fell most the way out. Patient denies any pain. He states he can feel and to visit at his skin. (Skyler Dias) This is a 61-year-old male who presents emergency Department complaining that he had a drain placed in his left axilla and it started to come out so he wants to be pulled out the rest of the weight. Patient states he had a lymph node removed and had it biopsied and that was the reason he had surgery but then it started to swell up his arm so he had a drain placed. Patient states his swelling comes and goes up any other physicians arms and sometimes down and sometimes is up. Patient states he has follow-up with Dr. Phillips. (Richard Cardona) - Related Data Home Medications Medication Instructions Recorded Confirmed Albuterol Inhaler [Ventolin Hfa 1 puff INHALATION RT-Q6H PRN 09/16/20 05/31/22 Inhaler] amLODIPine [Norvasc] 5 mg PO DAILY 09/16/20 05/31/22 Atorvastatin Calcium 40 mg PO HS 05/31/22 06/03/22 Pantoprazole [Protonix] 1 tab PO DAILY 05/31/22 06/03/22 Tiotropium 2.5 Mcg/Puff [Spiriva 1 puff INHALATION DAILY 05/31/22 06/03/22 Respimat 2.5 Mcg] Previous Rx's Medication Instructions Recorded Acetaminophen Tab [Tylenol] 650 mg PO Q6H #30 tab 06/03/22 Docusate [Colace] 100 mg PO BID #20 capsule 06/03/22 Ibuprofen [Motrin] 600 mg PO Q6HR PRN #40 tab 06/03/22 oxyCODONE HCL [OxyIR] 5 mg PO Q6H PRN 3 Days #10 tab 06/03/22 Allergies Allergy/AdvReac Type Severity Reaction Status Date / Time EVIN Inhibitors Allergy Anaphylaxis Verified 06/13/22 11:20 Review of Systems ROS Other: All systems not noted in ROS Statement are negative. <Skyler Dias - Last Filed: 06/13/22 12:04> ROS Other: All systems not noted in ROS Statement are negative. <Richard Cardona - Last Filed: 06/13/22 13:11> ROS Statement: Those systems with pertinent positive or pertinent negative responses have been documented in the HPI. Past Medical History Past Medical History: Cancer, COPD, CVA/TIA, Hypertension Additional Past Medical History / Comment(s): Has a staph infection on his back, skin CA. questionable cva 2020 History of Any Multi-Drug Resistant Organisms: None Reported Past Surgical History: Tonsillectomy Additional Past Surgical History / Comment(s): Skin cancer removed from back had to go to wound center post op for several months Past Anesthesia/Blood Transfusion Reactions: No Reported Reaction Past Psychological History: No Psychological Hx Reported Smoking Status: Former smoker Past Alcohol Use History: None Reported Past Drug Use History: None Reported - Past Family History Father Family Medical History: Dementia Additional Family Medical History / Comment(s): Father of Alzheimers. Mother Additional Family Medical History / Comment(s): Mother of a staph infection <Skyler Dias - Last Filed: 06/13/22 12:04> General Exam Limitations: no limitations <Skyler Dias - Last Filed: 06/13/22 12:04> <Richard Cardona - Last Filed: 06/13/22 13:11> - General Exam Comments Initial Comments: GENERAL Patient is well-developed and well-nourished. Patient is in mild distress. EYES Patient's pupils are equal and round. Extraocular motion is intact SKIN Unremarkable NEURO The patient is alert and oriented 3 PYSCH Patient has normal interpersonal interactions. MUSCULOSKELETAL Patient's left arm is swollen but he states this is been secondary to the surgery and if he keeps his arm up it does go away. The drain in the left axilla has been pulled out about 5-6 inches. (CardonaRichard ladd) Course Vital Signs 06/13/22 11:19 Temperature 98.4 F Pulse Rate 74 Respiratory 20 Rate Blood Pressure 184/92 O2 Sat by Pulse 99 Oximetry Medical Decision Making <Richard Cardona - Last Filed: 06/13/22 13:11> - Medical Decision Making Was pt. sent in by a medical professional or institution? @ -No Did you speak to anyone other than the patient for history? @ -No Did you review nursing and triage notes? @ -Agree with nursing triage notes Were old charts reviewed? @ -Reviewed operative no Differential Diagnosis? @ -No EKG interpreted by me (3pts min.)? @ -No X-rays interpreted by me (1pt min.)? @ -No CT interpreted by me (1pt min.)? @ -No U/S interpreted by me (1pt. min.)? @ -No What testing was considered but not performed? (CT, X-rays, U/S, labs)? Why? @ -None What meds were considered but not given? Why? @ -None Did you discuss the management of the patient with other professionals? @ -I spoke with Dr. Driscoll he wanted me to pull the drain out and have the patient follow up as scheduled Did you reconcile home meds? @ -No Was smoking cessation discussed for >3mins.? @ -No Was critical care preformed (if so, how long)? @ -No Were there social determinants of health that impacted care today? How? (Homelessness, low income, unemployed, alcoholism, drug addiction, transportation, low edu. Level, literacy, decrease access to med. care, penitentiary, rehab)? @ -No Was there de-escalation of care discussed even if they declined? (Discuss DNR or withdrawal of care, Hospice)? @ -No What co-morbidities impacted this encounter? (DM, HTN, Smoking, COPD, CAD, Cancer, CVA, Hep., AIDS, mental health diagnosis, sleep apnea, morbid obesity)? @ -No Was patient admitted / discharged? @ -Patient will be discharged home. I removed the drain after he removed the sutures. Patient I spoke with Dr. Phillips and he was in agreement with this. Undiagnosed new problem with uncertain prognosis? @ -None Drug Therapy requiring intensive monitoring for toxicity (Heparin, Nitro, Insulin, Cardizem)? @ -None Were any procedures done? @ -Known Diagnosis/symptom? @ -Drain removal Acute, or Chronic, or Acute on Chronic? @ -Acute Uncomplicated (without systemic symptoms) or Complicated (systemic symptoms)? @ -Uncomplicated Side effects of treatment? @ -None Exacerbation, Progression, or Severe Exacerbation @ -No Poses a threat to life or bodily function? @ -No (Richard Cardona) Disposition <Skyler Dias - Last Filed: 06/13/22 12:04> Is patient prescribed a controlled substance at d/c from ED?: No Time of Disposition: 13:11 <Richard Cardona - Last Filed: 06/13/22 13:11> Clinical Impression: Encounter for change or removal of drains Disposition: HOME SELF-CARE Condition: Good Additional Instructions: Patient should come back to the emergency Department the swelling in the arm is worse or there is redness or pain. Referrals: [facility],Clinic [Primary Care Provider] - 1-2 days
== END 2022-06-13 13:42 | disposition home or self-care (01) ==
LOC: EC 10:58
DX: Z48.03 Encounter for change or removal of drains (principal); J44.9 Chronic obstructive pulmonary disease, unspecified; I63.9 Cerebral infarction, unspecified; I10 Essential (primary) hypertension; Z87.891 Personal history of nicotine dependence; Z79.51 Long term (current) use of inhaled steroids; Z88.8 Allergy status to other drugs, medicaments and biological substances
CPT/HCPCS: 99283

== ENCOUNTER 2023-06-23 11:47 | Day surgery (SDC) | payer OTHER ==
[2023-06-16 12:22] VITALS: BMI 32.6
[~2023-06-23 11:47] MED LIST changes: -ACETAMINOPHEN TAB 500 MG TAB PO PRN; +ATROPINE SULFATE 0.4 MG/ML 1 ML VIAL IM ONE; -DEXAMETHASONE SOD PHOSPHATE 4 MG/ML 1 ML VIAL IV ONE; -HEPARIN SODIUM,PORCINE/PF 5,000 UNIT/0.5 ML SYRINGE SQ PRN; -HYDROmorphone 0.5 MG/0.5 ML SYRINGE IVP PRN; -LIDOCAINE 1% (10MG/ML) FOR IV START INTRADERMA PRN; -MIDAZOLAM 2 MG/2 ML VIAL IV PRN; -ONDANSETRON 4 MG/2 ML VIAL IVP ONE; -Pre Op ABX Message 1 EACH MISC MISCELLANE ONE
[2023-06-23] MEDS ORDERED: LACTATED RINGERS 1,000 ML IV ONE ×2 (12:05)
[2023-06-23 12:18] LABS: Glucose,Whole Blood 92 mg/dL (70-110)
[2023-06-23 12:41] VITALS: TEMP 98.1
[2023-06-23] MEDS ORDERED: KETAMINE HCL IN 0.9 % NACL 50 MG/5 ML SYRINGE ONE (12:46)
[2023-06-23] MEDS ORDERED: PROPOFOL 10 MG/ML 20 ML VIAL IV ONE (12:46)
[2023-06-23] MEDS ORDERED: LIDOCAINE 1% INJ 10MG/ML (20 ML MDV) ONE (12:46)
[2023-06-23 14:17] VITALS: BP 151/85; PULSE 88; RESP 20
--- NOTE | 2023-06-23 19:34 | PCN ---
PROCEDURE NOTE PROCEDURES PERFORMED: Bronchoscopy, airway examination, therapeutic lavage, BAL, BAL was right middle lobe. PREOPERATIVE DIAGNOSES: Chronic cough, hoarseness, lymphoma. POSTOPERATIVE DIAGNOSES: Chronic cough, hoarseness, lymphoma. 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 Rosa Maria Schulz. ANESTHESIA: Services provided general anesthesia. DESCRIPTION OF PROCEDURE: The patient's procedure took place in room #1 [facility]. There was informed consent and universal timeout. After the patient was adequately sedated, the bronchoscope was inserted through the right nostril. It passed through the right nasopharynx into the oropharynx. The hypopharynx was identified and topicalized. The hypopharyngeal structures had significant Mae noted. He had significant oropharyngeal candidiasis. The structures including anterior commissure, true cords, false cords, arytenoids, piriform sinuses, right and left, vallecula, epiglottis, otherwise appeared normal. The hypopharynx still was crowded. After topicalization, the bronchoscope was pushed through the glottic opening into the trachea. There was some yeast noted on the montalvo of the trachea. The tracheal jazmín was sharp. The right and left mainstem were topicalized. The right upper lobe and its 3 segments, the right middle lobe and its 2 segments, the right lower lobe and its 5 segments, left upper lobe proper and its 2 segments, lingula and its 2 segments, and left lower lobe and its 4 segments all had similar findings of [id number] tracheobronchomalacia, moderate bronchitis with hyperemia and erythema of the airways, and secretions. The secretions were a bit viscid and inspissated. Add the secretions were removed with the aid of saline lavage. Next the bronchoscope was wedged into the right middle lobe. A formal BAL took place. The patient tolerated the procedure well. There was no immediate complication. The bronchoscope will be withdrawn. The patient will be recovered. The patient will be sent home on a prescription of Diflucan 100 mg twice a day for 10 days. MMODL / IJN: [id number] /
[2023-06-24 05:58] LABS: Appearance,BF Cloudy (Clear); RBC, Body Fluid 5875 /UL (0-2000)
[2023-06-26 09:30] LABS: Nucleated Cells, Body Fluid 62 /UL
== END 2023-06-23 14:14 | disposition home or self-care (01) ==
LOC: ORWHC2ENDO 11:47
PROVIDERS: ATTEND Internal Medicine Critical Care Medicine
DX: J39.8 Other specified diseases of upper respiratory tract (principal); J98.09 Other diseases of bronchus, not elsewhere classified; J44.1 Chronic obstructive pulmonary disease with (acute) exacerbation; I10 Essential (primary) hypertension; C44.90 Unspecified malignant neoplasm of skin, unspecified; K21.9 Gastro-esophageal reflux disease without esophagitis; Z85.72 Personal history of non-Hodgkin lymphomas; Z88.8 Allergy status to other drugs, medicaments and biological substances; Z79.899 Other long term (current) drug therapy; Z87.891 Personal history of nicotine dependence; Z86.73 Personal history of transient ischemic attack (TIA), and cerebral infarction without residual deficits; Z79.51 Long term (current) use of inhaled steroids
CPT/HCPCS: 88108; 88305; 89050; 87070; 87205; 87116; 87102; 87077; 87186; 87206; 31624; J0461; J2001; J2704

== ENCOUNTER → 2023-08-04 | Outpatient (CLI) | payer OTHER ==
--- NOTE | 2023-08-06 11:35 | PE ---
EXAMINATION TYPE: PET CT fusion skull to thigh DATE OF EXAM: 08/04/2023 CLINICAL INDICATION:Male, 62 years old with history of C44.509 MELANOMA; TECHNIQUE: Following the intravenous administration of 9.19 mCi of F-18 FDG, whole body images are performed from the skull base to the midthigh. Images are reviewed on the computer in the coronal, a xial, and sagittal planes. Reconstructed rotating images are created on independent workstation and reviewed on the computer. A non-contrast CT is performed in conjunction with the PET scan. Glucose level 100 mg/dL CT DLP: 65 mGycm, Automated exposure control for dose reduction was used. COMPARISON: CT 04/06/2022, 09/17/2020, PET/CT 04/05/2023, FINDINGS: Mediastinal SUV mean is 2.1. Hepatic parenchyma SUV mean is 2.9. SKULL BASE AND NECK: No suspicious radiotracer activity. CHEST, MEDIASTINUM, AND HILAR REGION: No suspicious radiotracer activity. ABDOMEN AND PELVIS: No suspicious radiotracer activity. MUSCULOSKELETAL STRUCTURES: No suspicious radiotracer activity. OTHER CT: Atherosclerosis of the arterial vasculature including the coronary arteries. Small hiatal h ernia. Nonobstructing calculi seen on prior are not definitively visualized. Scattered colonic divert icula. Left inguinal hernia containing loop of colon. No evidence for obstruction. The appendix is no rmal. Moderate emphysema changes throughout the lungs. IMPRESSION: No suspicious radiotracer activity.
== END | disposition home or self-care (01) ==
LOC: RADPETMAIN 15:30
PROVIDERS: ATTEND Internal Medicine Hematology & Oncology
DX: C44.509 Unspecified malignant neoplasm of skin of other part of trunk (principal)
CPT/HCPCS: 78815; A9552

== ENCOUNTER → 2023-08-07 | Outpatient (CLI) | payer OTHER | END | disposition home or self-care (01) | LOC: LABWHC1 08:33 | PROVIDERS: ATTEND Internal Medicine Endocrinology, Diabetes & Metabolism | DX: Z29.89 Encounter for other specified prophylactic measures (principal); E03.8 Other specified hypothyroidism; R53.83 Other fatigue | CPT/HCPCS: 36415; 82024; 82533; 84443 ==

== ENCOUNTER → 2023-09-25 | Outpatient (CLI) | payer OTHER | END | disposition home or self-care (01) | LOC: LABWHC1 08:42 | PROVIDERS: ATTEND Internal Medicine Endocrinology, Diabetes & Metabolism | DX: Z29.89 Encounter for other specified prophylactic measures (principal); E03.8 Other specified hypothyroidism | CPT/HCPCS: 36415; 82024; 82533; 84443 ==

== ENCOUNTER → 2024-01-02 | Outpatient (CLI) | payer OTHER ==
[2024-01-02 16:16] LABS: ALT 21 U/L (10-49); AST 35 U/L (14-35); Albumin 4.2 g/dL (3.8-4.9); Albumin/Globulin Ratio 1.75 Ratio (1.60-3.17); Alkaline Phosphatase 85 U/L (41-126); BUN/Creat Ratio 12.56 Ratio (12.00-20.00); Blood Urea Nitrogen 11.3 mg/dL (9.0-27.0); Calcium 9.2 mg/dL (8.7-10.3); Carbon Dioxide 26.5 mmol/L (21.6-31.8); Chloride 98 mmol/L (96-109); Globulin 2.4 g/dL (1.6-3.3); Glucose 112 mg/dL (70-110); Potassium 3.9 mmol/L (3.5-5.5); Sodium 138 mmol/L (135-145); Total Bilirubin 0.6 mg/dL (0.3-1.2); Total Protein 6.6 g/dL (6.2-8.2)
== END | disposition home or self-care (01) ==
LOC: LABWHC1 08:10
PROVIDERS: ATTEND Internal Medicine Endocrinology, Diabetes & Metabolism
DX: E03.8 Other specified hypothyroidism (principal); Z29.89 Encounter for other specified prophylactic measures
CPT/HCPCS: 36415; 80053; 84443

== ENCOUNTER → 2024-07-15 | Outpatient (CLI) | payer OTHER ==
--- NOTE | 2024-07-15 09:22 | CT ---
EXAMINATION TYPE: CT chest wo con CT DLP: 471.8 mGycm, Automated exposure control for dose reduction was used. DATE OF EXAM: 07/15/2024 8:58 AM COMPARISON: PET CT 08/04/2023, CT chest 04/06/2022, 02/18/2021, 09/16/2020 CLINICAL INDICATION:Male, 63 years old with history of R91.1 SPN; PHH, Follow up for pulmonary nodul e. SOB. TECHNIQUE: Multiple axial images were obtained through the chest without IV contrast. Lack of IV or o ral contrast limits evaluation of solid and hollow organ viscera. . Coronal and sagittal reformats re viewed. FINDINGS: LUNGS/ PLEURA: Moderate centrilobular emphysematous changes. Mild bilateral lower lobe subsegmental a telectasis. Stable linear density within the right upper lobe measuring 5 x 2 mm (series 4, image 15 ). Stable left lower lobe 5.7 mm solid pulmonary nodule from most recent PET/CT (series 4, image 39). However this has increased in size from prior CT chest in 2021 measuring 3.5 mm. No pleural effusion , pneumothorax, focal consolidation. AIRWAY: Patent and unremarkable.. HEART: Size within normal limits.No pericardial effusion. Coronary artery calcifications. MEDIASTINUM: No gross evidence of adenopathy. VASCULATURE: No aortic aneurysm. Mild atherosclerotic calcification of the aorta and its branches. MUSCULOSKELETAL: No acute osseous abnormalities. Mild multilevel degenerative disc disease. SOFT TISSUES/LYMPH NODES: Decrease in size and number of enlarged left axillary lymph nodes and surro unding inflammatory changes from prior CT chest. Couple of mildly prominent left axillary lymph nodes are demonstrated with largest measuring 9 mm short axis. LOWER NECK: No significant findings. UPPER ABDOMEN: Small hiatal hernia. Diffuse low-attenuation of the liver. IMPRESSION: 1. No acute thoracic process. 2. Stable right upper lobe 5 mm pulmonary nodular opacity with stable solid left lower lobe 5.7 mm pu lmonary nodule from most recent PET/CT. However this left lower lobe pulmonary nodule has slowly incr eased in size from prior CT in 2021 when it measured 3.5 mm. Continued surveillance is recommended wi th follow-up CT chest in 6 months. 3. Moderate emphysematous changes. 4. Improvement in left axillary adenopathy and fat stranding from prior CT chest. 5. Hepatic steatosis. [facility]: [id number], 07/15/2024 9:20 AM
== END | disposition home or self-care (01) ==
LOC: RADCTMAIN 08:44
PROVIDERS: ATTEND Family Medicine
DX: J43.2 Centrilobular emphysema (principal); K76.0 Fatty (change of) liver, not elsewhere classified; R59.0 Localized enlarged lymph nodes; R91.8 Other nonspecific abnormal finding of lung field
CPT/HCPCS: 71250